=== PATIENT | female | born 1970 | race Two or more races ===

== ENCOUNTER 2024-03-27 09:36 | Outpatient (AMB) | payer MEDICAID, SELFPAY ==
--- NOTE | 2024-03-27 10:14 | PD.ORTHCLVIS ---
Vital signs 03/27/24 10:15 Height 1.6 m Height Method Stated Weight 101.406 kg Weight Measurement Method Standing Scale BMI 39.6 BP 119/74 Blood Pressure Source Automatic Cuff Blood Pressure Location Right Upper Arm Position Sitting Respiration 19 Pulse 68 Pulse Source Monitor Temp 98.0 F Temp Source Temporal Artery Scan Pulse Oximetry (%) 97 Oxygen Delivery Method Room Air Med/Allergies Allergies & Medications Allergies ibuprofen Allergy (Verified 03/27/24 10:15) oyster extract Allergy (Verified 03/27/24 10:15) peanut Allergy (Verified 03/27/24 10:15) shrimp Allergy (Verified 03/27/24 10:15) Medication Reconciliation Unobtainable 03/09/24 [History Confirmed 03/27/24] Subjective Visit Visit for: follow up visit, knee, x-rays and injections Immunization / Flu Flu Vaccine in the Last 12 Months: Yes Flu Vaccine Exclusion Criteria: Already Received History of Present Illness Chief complaint: FOLLOW UP KNEE/XRAYS RESULTS/INJECTION Marika is a pleasant 53-year-old female with left greater than right knee pain. This been ongoing for quite a while. A lot of her pain actually starts in her back and buttocks and radiates all the way down to the leg. There is associated numbness and tingling. She also has right knee pain. Pain Pain level (0-10): 7 Pain duration: CONSTANT Pain location: inside (medial) Pain quality: aching Pain timing: increases with activity Associated signs & symptoms: weakness Ambulatory data Ambulatory device: none Treatments Improvement with previous injections: No Improvement with PT: No Improvement with NSAIDS: no Review of Systems Review of Systems: All systems negative unless otherwise noted in HPI. Exam Exam Patient is in no acute distress and is cooperative with the examination today. Breathing is nonlabored. Patient has a normal mood and affect. Bilateral extremities were evaluated and demonstrates sensation intact to light touch. Palpable pedal pulses are present. No significant edema is present. Bilateral hips were examined. The patient has no pain with log roll of the hips. Internal rotation to 30 degrees and external rotation to 30 degrees is painless. Negative FADIR. Right knee was examined today. The right knee is in reasonable alignment. Range of motion from 0-120 degrees. Knee is stable to varus and valgus as well as AP translation with <5mm. Patient has a negative McMurrays. There is no pain with patellofemoral compression and no crepitus noted. The knee is nontender to palpation. Left knee was examined today. The left knee is in [varus] alignment. Range of motion from [0-115] degrees. Knee is stable to varus and valgus as well as AP translation with <5mm. Patient has a [negative] McMurrays. There is [no] pain with patellofemoral compression and [no] crepitus noted. The knee is [tender] to palpation [medially and laterally]. We obtained weightbearing x-rays from this month. 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 There is moderate arthritis and joint space narrowing on the right. On the left knee there is severe arthritis with complete obliteration of the medial joint space particularly on the Sr. There are osteophytes present. The lumbar spine demonstrates severe changes at L5-S1 Assessment and Plan Problem List (1) Degenerative arthritis of knee, bilateral: Status: Acute Plan: Patient is a pleasant 53-year-old female with bilateral knee painAnd bilateral knee arthritis. She has more arthritis on the left knee. She does have radicular symptoms and has severe degenerative changes on the lumbar spine. I think she would likely benefit from an MRI and a spine evaluation in the future. I will do a cortisone injection of her bilateral knees for both diagnostic and therapeutic purposes Recommend knee cortisone injections as patient would like to proceed with conservative treatment at this time. The risks and benefits of the procedure were reviewed with the patient and patient gave verbal consent to continue with the procedure. Procedure: performed by Dr. Wallace Using sterile technique the Bilateral knees were thoroughly prepped with alcohol, and approximately 1 cc of Kenalog 40 mg/mL and 4 cc of 1% lidocaine was injected into each knee without resistance into the medial tibial femoral joint space. The patient tolerated the procedure. Office Procedures GNS Level of Care Nursing/Assessment Patient Status: Established Patient Nursing Assessment/Reassesment: Medication Reconciliation, Update PMH in EMR and Vital Signs Coordination of Care: Complex Care and Chronic Disease 1-5, Education Complex Pt/Fam, Consent,records obtained, informed consent, Lab and Imaging orders, Results/Orders obtained and Staff clarify orders Special Needs: Language special needs Established Patient Charge Established Patient Point Assignment: 110 Established Patient Point Charge: EP Level 3 (80-115) Surgical Proc/IM SQ injection Major Surgical Procedure: Yes (BILATERAL KNEE INJECTION) Medication Given Medication Given Medication Given: Yes Documented Dose Given: 8 Route: Infiitration Medication Given Medication Given Medication Given: Yes Documented Dose Given: 2 Route: Infiitration Office Meds Xylocaine 10 mg/mL (1 %) injection solution Performing Provider: Roderick Wallace MD Performing Location: [facility] Administered by: Roderick Wallace MD on 03/27/24 10:32 Dose Route Admin Location Dispensed Lot Number Expiration Date [facility] [employer] 40 mL Infiltration 40 mL [id number] 01/26/27 64240-113-43 [facility] triamcinolone acetonide 40 mg/mL suspension for injection Performing Provider: Roderick Wallace MD Performing Location: [facility] Administered by: Roderick Wallace MD on 03/27/24 10:32 Dose Route Admin Location Dispensed Lot Number Expiration Date [facility] [employer] 80 mg Infiltration 2 mL [id number] 12/26/25 [id number] [employer] Past Medical History Past Medical History Have you ever been diagnosed with any of the following: Cardiology Problems Hypercholesterolemia: Yes Hypertension: Yes Respiratory Problems Smoking: No Smoking Exposure: No
[2024-03-27 10:15] VITALS: BP 119/74; PULSE 68; RESP 19; TEMP 36.7; O2SAT 97; BMI 39.6
== END 2024-03-27 11:18 | disposition home or self-care (01) ==
PROVIDERS: PCP Physician Assistant; Referring Provider Physician Assistant; Supervising Provider Orthopaedic Surgery Adult Reconstructive Orthopaedic Surgery; Visit Provider Orthopaedic Surgery Adult Reconstructive Orthopaedic Surgery
DX: M17.0 Bilateral primary osteoarthritis of knee (principal); M25.562 Pain in left knee; M25.561 Pain in right knee; M51.369 Other intervertebral disc degeneration, lumbar region without mention of lumbar back pain or lower extremity pain; I10 Essential (primary) hypertension; E78.00 Pure hypercholesterolemia, unspecified
CPT/HCPCS: 20610; 99213; J3301; J3490; G0463

== ENCOUNTER 2024-07-03 13:58 | Outpatient (AMB) | payer MEDICAID, SELFPAY ==
--- NOTE | 2024-07-03 14:02 | ORTHONT_ITS ---
Vital signs 07/03/24 14:07 Height 1.6 m Height Method Stated Weight 92.108 kg Weight Measurement Method Standing Scale BMI 35.9 BP 125/82 Blood Pressure Source Automatic Cuff Blood Pressure Location Right Upper Arm Position Sitting Respiration 18 Pulse 68 Pulse Source Monitor Temp 98.1 F Temp Source Temporal Artery Scan Pulse Oximetry (%) 97 Oxygen Delivery Method Room Air Med/Allergies Allergies & Medications Allergies ibuprofen Allergy (Verified 07/03/24 14:08) oyster extract Allergy (Verified 07/03/24 14:08) peanut Allergy (Verified 07/03/24 14:08) shrimp Allergy (Verified 07/03/24 14:08) Medication Reconciliation Unobtainable 03/09/24 [History Confirmed 07/03/24] Exam Exam Patient is in no acute distress and is cooperative with the examination today. Breathing is nonlabored. Patient has a normal mood and affect. Bilateral extremities were evaluated and demonstrates sensation intact to light touch. Palpable pedal pulses are present. No significant edema is present. Bilateral hips were examined. The patient has no pain with log roll of the hips. Internal rotation to 30 degrees and external rotation to 30 degrees is painless. Negative FADIR. Right knee was examined today. The right knee is in reasonable alignment. Range of motion from 0-120 degrees. Knee is stable to varus and valgus as well as AP translation with <5mm. Patient has a negative McMurrays. There is no pain with patellofemoral compression and no crepitus noted. The knee is nontender to palpation. Left knee was examined today. The left knee is in [varus] alignment. Range of motion from [0-115] degrees. Knee is stable to varus and valgus as well as AP translation with <5mm. Patient has a [negative] McMurrays. There is [no] pain with patellofemoral compression and [no] crepitus noted. The knee is [tender] to palpation [medially and laterally]. We obtained weightbearing x-rays from this month. 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 There is moderate arthritis and joint space narrowing on the right. On the left knee there is severe arthritis with complete obliteration of the medial joint space particularly on the Sr. There are osteophytes present. The lumbar spine demonstrates severe changes at L5-S1 Assessment and Plan Problem List (1) Degenerative arthritis of knee, bilateral: Status: Acute Plan: Patient is a pleasant 53-year-old female with bilateral knee painAnd bilateral knee arthritis. She has more arthritis on the left knee. She does have radicular symptoms and has severe degenerative changes on the lumbar spine. I think she would likely benefit from an MRI and a spine evaluation in the future. I will do a cortisone injection of her bilateral knees for both diagnostic and therapeutic purposes. She did well with the last injections Recommend knee cortisone injections as patient would like to proceed with conservative treatment at this time. The risks and benefits of the procedure were reviewed with the patient and patient gave verbal consent to continue with the procedure. Procedure: performed by Dr. Wallace Using sterile technique the Bilateral knees were thoroughly prepped with alcohol, and approximately 1 cc of Kenalog 40 mg/mL and 4 cc of 1% lidocaine was injected into each knee without resistance into the medial tibial femoral joint space. The patient tolerated the procedure. Office Procedures GNS Level of Care Nursing/Assessment Patient Status: Established Patient Nursing Assessment/Reassesment: Medication Reconciliation, Update PMH in EMR and Vital Signs Coordination of Care: Complex Care and Chronic Disease 1-5, Education Complex Pt/Fam, Consent,records obtained, informed consent, Results/Orders obtained and Staff clarify orders Special Needs: Language special needs Established Patient Charge Established Patient Point Assignment: 95 Established Patient Point Charge: EP Level 3 (80-115) Surgical Proc/IM SQ injection Major Surgical Procedure: Yes (KNEE INJECTION) Medication Given Medication Given Medication Given: Yes Documented Dose Given: 8 Route: Infiitration Medication Given Medication Given Medication Given: Yes Documented Dose Given: 2 Route: Infiitration Office Meds Xylocaine 10 mg/mL (1 %) injection solution Performing Provider: Roderick Wallace MD Performing Location: [facility] Administered by: Roderick Wallace MD on 07/03/24 14:20 Dose Route Admin Location Dispensed Lot Number Expiration Date [facility] [employer] Representative Insurance 40 mL Infiltration 40 mL [id number] [employer] triamcinolone acetonide 40 mg/mL suspension for injection Performing Provider: Roderick Wallace MD Performing Location: [facility] Administered by: Roderick Wallace MD on 07/03/24 14:20 Dose Route Admin Location Dispensed Lot Number Expiration Date [facility] Outside Sales Representative Insurance 80 mg intra-articular 2 mL [id number] [employer] [place] Intake Visit Data Collection New Patient or Established: Established Patient (seen at [facility] within 3 years) Reason for Visit:: F/U KNEE INJECTION Seen by Clinical Staff ONLY (RN/MA): No Verbal consent obtained for Telemed visit?: No Record Filing Clerk Required: Yes PCP or OBGYN visit in last 3 months: Yes Hx Now: No Do You Feel Safe at Home: Yes Authorities Contacted: N/A Questionairres Past Medical History Past Medical History Have you ever been diagnosed with any of the following: Cardiology Problems Hypercholesterolemia: Yes Hypertension: Yes Respiratory Problems Smoking: No Smoking Exposure: No Subjective Visit Visit for: follow up visit, knee and injections Immunization / Flu Flu Vaccine in the Last 12 Months: No Flu Vaccine Exclusion Criteria: No Exclusion Criteria History of Present Illness Chief complaint: left knee pain Marika is a pleasant 53-year-old female with left greater than right knee pain. This been ongoing for quite a while. A lot of her pain actually starts in her back and buttocks and radiates all the way down to the leg. There is associated numbness and tingling. She also has right knee pain. She did well with the last injection and has minimal pain. Pain Pain level (0-10): 8 Pain duration: CONSTANT Pain location: inside (medial), outside (lateral) and anterior Pain quality: dull and aching Pain timing: increases with activity Associated signs & symptoms: other (specify) Ambulatory data Ambulatory device: none Treatments Improvement with previous injections: No Improvement with PT: No Improvement with NSAIDS: no Review of Systems Review of Systems: All systems negative unless otherwise noted in HPI.
[2024-07-03 14:07] VITALS: BP 125/82; PULSE 68; RESP 18; TEMP 36.7; O2SAT 97; BMI 35.9
== END 2024-07-03 15:00 | disposition home or self-care (01) ==
LOC: HODSRG 13:58
PROVIDERS: Supervising Provider Orthopaedic Surgery Adult Reconstructive Orthopaedic Surgery; Visit Provider Orthopaedic Surgery Adult Reconstructive Orthopaedic Surgery
DX: M17.0 Bilateral primary osteoarthritis of knee (principal); M25.562 Pain in left knee; M25.561 Pain in right knee; I10 Essential (primary) hypertension; E78.00 Pure hypercholesterolemia, unspecified
CPT/HCPCS: 20610; 99213; J3301; J3490; G0463

== ENCOUNTER 2024-07-31 09:45 | Outpatient (AMB) | payer MEDICAID, SELFPAY ==
[2024-07-31 10:27] VITALS: BP 125/78; PULSE 70; RESP 19; TEMP 36.4; O2SAT 98; BMI 34.2
--- NOTE | 2024-07-31 10:27 | ORTHONT_ITS ---
Vital signs 07/31/24 10:27 Height 1.6 m Height Method Stated Weight 87.798 kg Weight Measurement Method Standing Scale BMI 34.2 BP 125/78 Blood Pressure Source Automatic Cuff Blood Pressure Location Left Upper Arm Position Sitting Respiration 19 Pulse 70 Pulse Source Monitor Temp 97.6 F Temp Source Temporal Artery Scan Pulse Oximetry (%) 98 Oxygen Delivery Method Room Air Med/Allergies Allergies & Medications Allergies ibuprofen Allergy (Verified 07/31/24 10:27) oyster extract Allergy (Verified 07/31/24 10:27) peanut Allergy (Verified 07/31/24 10:27) shrimp Allergy (Verified 07/31/24 10:27) Medication Reconciliation pregabalin 75 mg capsule (Lyrica) 75 mg PO BID #30 caps 07/31/24 [Rx] Exam Exam Patient is in no acute distress and is cooperative with the examination today. Breathing is nonlabored. Patient has a normal mood and affect. Bilateral extremities were evaluated and demonstrates sensation intact to light touch. Palpable pedal pulses are present. No significant edema is present. Bilateral hips were examined. The patient has no pain with log roll of the hips. Internal rotation to 30 degrees and external rotation to 30 degrees is painless. Negative FADIR. Right knee was examined today. The right knee is in reasonable alignment. Range of motion from 0-120 degrees. Knee is stable to varus and valgus as well as AP translation with <5mm. Patient has a negative McMurrays. There is no pain with patellofemoral compression and no crepitus noted. The knee is nontender to palpation. Left knee was examined today. The left knee is in [varus] alignment. Range of motion from [0-115] degrees. Knee is stable to varus and valgus as well as AP translation with <5mm. Patient has a [negative] McMurrays. There is [no] pain with patellofemoral compression and [no] crepitus noted. The knee is [tender] to palpation [medially and laterally]. We obtained weightbearing x-rays from this month. 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 There is moderate arthritis and joint space narrowing on the right. On the left knee there is severe arthritis with complete obliteration of the medial joint space particularly on the Sr. There are osteophytes present. The lumbar spine demonstrates severe changes at L5-S1, And prominent bone spurs on the left side of her L3 spine Assessment and Plan Problem List (1) Degenerative arthritis of knee, bilateral: Status: Acute Plan: Patient is a pleasant 53-year-old female with bilateral knee painAnd bilateral knee arthritis. She has more arthritis on the left knee. She does have ra dicular symptoms and has severe degenerative changes on the lumbar spine. I think she would likely benefit from an MRI and a spine evaluation in the future. We discussed is a little Early for a left knee injection at this time. We will give her a left knee brace Office Procedures GNS Level of Care Nursing/Assessment Patient Status: Established Patient Nursing Assessment/Reassesment: Medication Reconciliation, Update PMH in EMR and Vital Signs Coordination of Care: Complex Care and Chronic Disease 1-5, Education Complex Pt/Fam, Consent,records obtained, informed consent, Results/Orders obtained and Staff clarify orders Special Needs: Language special needs Established Patient Charge Established Patient Point Assignment: 95 Established Patient Point Charge: EP Level 3 (80-115) MA Intake Visit Data Collection New Patient or Established: Established Patient (seen at [facility] within 3 years) Reason for Visit:: KNEE PAIN/SWELLING/NUMBNESS LEFT KNEE Seen by Clinical Staff ONLY (RN/MA): No Verbal consent obtained for Telemed visit?: No Slurry Worker Required: Yes PCP or OBGYN visit in last 3 months: Yes Hx Now: No Do You Feel Safe at Home: Yes Authorities Contacted: N/A Questionairres Past Medical History Past Medical History Have you ever been diagnosed with any of the following: Cardiology Problems Hypercholesterolemia: Yes Hypertension: Yes Respiratory Problems Smoking: No Smoking Exposure: No Subjective Visit Visit for: follow up visit and knee (LEFT) Immunization / Flu Flu Vaccine in the Last 12 Months: No Flu Vaccine Exclusion Criteria: No Exclusion Criteria History of Present Illness Chief complaint: left knee pain Marika is a pleasant 53-year-old female with left greater than right knee pain. This been ongoing for quite a while. A lot of her pain actually starts in her back and buttocks and radiates all the way down to the leg. There is associated numbness and tingling. She also has right knee pain. She reports she did not get great relief with a left knee injection. I discussed with her that we need to get a back workup and is scheduled for MRI later this month Pain Pain level (0-10): 8 Pain duration: ALL DAY Pain location: inside (medial) and anterior Pain quality: aching, burning and tingling Pain timing: increases with activity and stairs Associated signs & symptoms: other (specify) Ambulatory data Ambulatory device: none Treatments Improvement with previous injections: No Improvement with PT: No Improvement with NSAIDS: no Review of Systems Review of Systems: All systems negative unless otherwise noted in HPI.
== END 2024-07-31 10:51 | disposition home or self-care (01) ==
LOC: HODSRG 09:45
PROVIDERS: Supervising Provider Orthopaedic Surgery Adult Reconstructive Orthopaedic Surgery; Visit Provider Orthopaedic Surgery Adult Reconstructive Orthopaedic Surgery
DX: M17.0 Bilateral primary osteoarthritis of knee (principal)
CPT/HCPCS: 99213; G0463

== ENCOUNTER 2024-10-12 10:38 | Outpatient (AMB) | payer MEDICAID, SELFPAY ==
[2024-10-12 11:02] VITALS: BP 130/75; PULSE 65; RESP 18; TEMP 36.8; O2SAT 97; BMI 32.4
--- NOTE | 2024-10-12 11:02 | ORTHONT_ITS ---
Vital signs 10/12/24 11:02 Height 1.6 m Height Method Stated Weight 83.121 kg Weight Measurement Method Standing Scale BMI 32.4 BP 130/75 Blood Pressure Source Automatic Cuff Blood Pressure Location Right Upper Arm Position Sitting Respiration 18 Pulse 65 Pulse Source Monitor Temp 98.2 F Temp Source Temporal Artery Scan Pulse Oximetry (%) 97 Oxygen Delivery Method Room Air Med/Allergies Allergies & Medications Allergies ibuprofen Allergy (Verified 10/12/24 11:02) oyster extract Allergy (Verified 10/12/24 11:02) peanut Allergy (Verified 10/12/24 11:02) shrimp Allergy (Verified 10/12/24 11:02) Medication Reconciliation pregabalin 75 mg capsule (Lyrica) 75 mg PO BID #30 caps 07/31/24 [Rx Confirmed 10/12/24] Exam Exam Patient is in no acute distress and is cooperative with the examination today. Breathing is nonlabored. Patient has a normal mood and affect. Bilateral extremities were evaluated and demonstrates sensation intact to light touch. Palpable pedal pulses are present. No significant edema is present. Bilateral hips were examined. The patient has no pain with log roll of the hips. Internal rotation to 30 degrees and external rotation to 30 degrees is painless. Negative FADIR. Right knee was examined today. The right knee is in reasonable alignment. Range of motion from 0-120 degrees. Knee is stable to varus and valgus as well as AP translation with <5mm. Patient has a negative McMurrays. There is no pain with patellofemoral compression and no crepitus noted. The knee is nontender to palp ation. Left knee was examined today. The left knee is in [varus] alignment. Range of motion from [0-115] degrees. Knee is stable to varus and valgus as well as AP translation with <5mm. Patient has a [negative] McMurrays. There is [no] pain with patellofemoral compression and [no] crepitus noted. The knee is [tender] to palpation [medially and laterally]. We obtained weightbearing x-rays from this month. 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 There is moderate arthritis and joint space narrowing on the right. On the left knee there is severe arthritis with complete obliteratio n of the medial joint space particularly on the Sr. There are osteophytes present. The lumbar spine demonstrates severe changes at L5-S1, And prominent bone spurs on the left side of her L3 spine Assessment and Plan Problem List (1) Degenerative arthritis of knee, bilateral: Status: Acute Plan: Patient is a pleasant 53-year-old female with bilateral knee pain and bilateral knee arthritis. She has more arthritis on the left knee. She does have radicular symptoms and has severe degenerative changes on the lumbar spine. I think she would likely benefit from an MRI and a spine evaluation in the future. Recommend knee cortisone injections as patient would like to proceed with conservative treatment at this time. The risks and benefits of the procedure were reviewed with the patient and patient gave verbal consent to continue with the procedure. Procedure: performed by Dr. Wallace Using sterile technique the Bilateral knees were thoroughly prepped with alcohol, and approximately 1 cc of Kenalog 40 mg/mL and 4 cc of 1% lidocaine was injected into each knee without resistance into the medial tibial femoral joint space. The patient tolerated the procedure. Office Procedures GNS Level of Care Nursing/Assessment Patient Status: Established Patient Nursing Assessment/Reassesment: Medication Reconciliation, Update PMH in EMR and Vital Signs Coordination of Care: Complex Care and Chronic Disease 1-5, Education Complex Pt/Fam, Consent,records obtained, informed consent, Results/Orders obtained and Staff clarify orders Special Needs: Language special needs Established Patient Charge Established Patient Point Assignment: 95 Established Patient Point Charge: EP Level 3 (80-115) Surgical Proc/IM SQ injection Major Surgical Procedure: Yes (BILATERAL KNEE INJECTION) Medication Given Medication Given Medication Given: Yes Documented Dose Given: 8 Route: Infiitration Medication Given Medication Given Medication Given: Yes Documented Dose Given: 2 Route: Infiitration Office Meds Xylocaine 10 mg/mL (1 %) injection solution Performing Provider: Roderick Wallace MD Performing Location: [facility] Administered by: Roderick Wallace MD on 10/12/24 11:26 Dose Route Admin Location Dispensed Lot Number Expiration Date [facility] [employer] 40 mL Infiltration 40 mL [id number] 01/27/28 10057-704-26 [facility] triamcinolone acetonide 40 mg/mL suspension for injection Performing Provider: Roderick Wallace MD Performing Location: [facility] Administered by: Roderick Wallace MD on 10/12/24 11:26 Dose Route Admin Location Dispensed Lot Number Expiration Date [facility] [employer] 80 mg intra-articular 2 mL [id number] 03/28/26 6701-1295-39 [place] [employer] [place] Intake Visit Data Collection New Patient or Established: Established Patient (seen at [facility] within 3 years) Reason for Visit:: F/U BILATERAL KNEE INJECTIONS Seen by Clinical Staff ONLY (RN/MA): No Verbal consent obtained for Telemed visit?: No Avionics Electrical Engineer Required: Yes PCP or OBGYN visit in last 3 months: Yes Hx Now: No Do You Feel Safe at Home: Yes Authorities Contacted: N/A Questionairres Past Medical History Past Medical History Have you ever been diagnosed with any of the following: Cardiology Problems Hypercholesterolemia: Yes Hypertension: Yes Respiratory Problems Smoking: No Smoking Exposure: No Subjective Visit Visit for: follow up visit, knee and injections Immunization / Flu Flu Vaccine in the Last 12 Months: Yes Flu Vaccine Exclusion Criteria: Already Received History of Present Illness Chief complaint: F/U BILATERAL KNEE INJECTION Marika is a pleasant 53-year-old female with left greater than right knee pain. This been ongoing for quite a while. A lot of her pain actually starts in her back and buttocks and radiates all the way down to the leg. There is associated numbness and tingling. She also has right knee pain. She reports she did not get great relief with a left knee injection. I discussed with her that we need to get a back workup. We did not get a copy of the report. Personal History Red flag PMH: BMI BMI Counceling provided: Yes Pain Pain level (0-10): 10 Pain duration: ALL CONSTANT Pain location: inside (medial), outside (lateral) and posterior Pain quality: sharp, dull and aching Pain timing: night, increases with activity and stairs Associated signs & symptoms: weakness and stiffness Ambulatory data Ambulatory device: none Treatments Number of previous injections: 2 Improvement with previous injections: Yes Improvement with PT: No Improvement with NSAIDS: no Review of Systems Review of Systems: All systems negative unless otherwise noted in HPI.
== END 2024-10-12 11:28 | disposition home or self-care (01) ==
LOC: HODSRG 10:38
PROVIDERS: Supervising Provider Orthopaedic Surgery Adult Reconstructive Orthopaedic Surgery; Visit Provider Orthopaedic Surgery Adult Reconstructive Orthopaedic Surgery
DX: M17.0 Bilateral primary osteoarthritis of knee (principal); M25.562 Pain in left knee; M25.561 Pain in right knee; I10 Essential (primary) hypertension; E78.00 Pure hypercholesterolemia, unspecified; R20.0 Anesthesia of skin; R20.2 Paresthesia of skin
CPT/HCPCS: 20610; 99213; J3301; J3490; G0463

== ENCOUNTER 2025-01-15 07:50 | Outpatient (AMB) | payer MEDICAID, SELFPAY ==
--- NOTE | 2025-01-15 08:10 | PD.ORTHCLVIS ---
Vital signs 01/15/25 08:11 Height 1.6 m Height Method Stated Weight 85.389 kg Weight Measurement Method Standing Scale BMI 33.3 BP 147/84 H Blood Pressure Source Automatic Cuff Blood Pressure Location Left Upper Arm Position Sitting Respiration 18 Pulse 66 Pulse Source Monitor Temp 97.7 F Temp Source Temporal Artery Scan Pulse Oximetry (%) 98 Oxygen Delivery Method Room Air Med/Allergies Allergies & Medications Allergies ibuprofen Allergy (Verified 01/15/25 08:12) oyster extract Allergy (Verified 01/15/25 08:12) peanut Allergy (Verified 01/15/25 08:12) shrimp Allergy (Verified 01/15/25 08:12) Medication Reconciliation pregabalin 75 mg capsule (Lyrica) 75 mg PO BID #30 caps 07/31/24 [Rx Confirmed 01/15/25] Exam Exam Patient is in no acute distress and is cooperative with the examination today. Breathing is nonlabored. Patient has a normal mood and affect. Bilateral extremities were evaluated and demonstrates sensation intact to light touch. Palpable pedal pulses are present. No significant edema is present. Bilateral hips were examined. The patient has no pain with log roll of the hips. Internal rotation to 30 degrees and external rotation to 30 degrees is painless. Negative FADIR. Right knee was examined today. The right knee is in reasonable alignment. Range of motion from 0-120 degrees. Knee is stable to varus and valgus as well as AP translation with <5mm. Patient has a negative McMurrays. There is no pain with patellofemoral compression and no crepitus noted. The knee is nontender to palpation. Left knee was examined today. The left knee is in [varus] alignment. Range of motion from [0-115] degrees. Knee is stable to varus and valgus as well as AP translation with <5mm. Patient has a [negative] McMurrays. There is [no] pain with patellofemoral compression and [no] crepitus noted. The knee is [tender] to palpation [medially and laterally]. We obtained weightbearing x-rays. 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 There is moderate arthritis and joint space narrowing on the right. On the left knee there is severe arthritis with complete obliteration of the medial joint space particularly on the Sr. There are osteophytes present. The lumbar spine demonstrates severe changes at L5-S1, And prominent bone spurs on the left side of her L3 spine Assessment and Plan Problem List (1) Degenerative arthritis of knee, bilateral: Status: Acute Plan: Patient is a pleasant 53-year-old female with bilateral knee pain and bilateral knee arthritis. She has more arthritis on the left knee. She does have radicular symptoms and has severe degenerative changes on the lumbar spine. She has received great relief with cortisone injections in the past and is no longer getting as great relief as she did before. We thus discussed total knee replacement as a reasonable option. She has tried anti-inflammatories as well as injections and home exercise program. I discussed that her some of the pain could be from her lumbar spine particularly numbness and tingling but a lot of the pain is localized to the knee and she did get great relief with the cortisone injections. I thus think to a total knee replacement would be of benefit for her. The nature and purpose of the total knee replacement, alternative method(s) of treatment, the material risks involved, and the possibility of complications were fully explained to the patient. The patient does NOT have any of the following contraindications to TKA: - Active infection of the knee joint, OR - Active systemic bacteremia, OR - Active skin infection or open wound at surgical site, OR - Neuropathic arthritis, OR - Severe, rapidly progressive neurological disease, OR - Severe medical condition that makes risks of surgery outweigh the potential benefit The patient was told the most common risks and complications associated with a total knee replacement include, but are not limited to: blood clots in the leg, fatal pulmonary embolism, dislocation of the prosthesis, intraoperative and postoperative fractures of the femur or tibia, infection, failure of the prosthesis or grafting materials, complications from anesthesia, reactions to blood transfusions, postoperative leg length inequality, instability of the knee replacement, nerve damage or injury, vascular injury, delayed wound healing, infection, other injury or even . In addition, there are risks associated with anesthesia given during this operation. Also, the patient was told that after undergoing a total knee replacement there may still be persistent pain or disability. The patient was informed that the success of this operation in part depends upon the mechanical devices which are going to be implanted and that these devices can fail or malfunction, and may need to be repaired or replaced and there are no guarantees as to the longevity of this device or its parts and that it or its parts could fail prematurely. The patient was also notified that during the course of surgery, there may be a need to use bone graft from donors, and that any bone graft used will be carefully screened for communicable diseases, including AIDS, hepatitis, Kwaku-Creutzfeldt, or other diseases, but despite the screening procedures, there is a small chance that they could contract one of these diseases. Finally, the patient was asked to follow completely and fully with all advice and recommended treatments, and that recovery and ultimate outcome are affected by their compliance with recommended treatment. We discussed the risks, benefits and treatment alternatives, and the patient is interested in proceeding with surgery. We will try to set this up as expeditiously as possible. Office Procedures GNS Level of Care Nursing/Assessment Patient Status: Established Patient Nursing Assessment/Reassesment: Medication Reconciliation, Update PMH in EMR and Vital Signs Coordination of Care: Complex Care and Chronic Disease 1-5, Education Complex Pt/Fam, Consent,records obtained, informed consent, Results/Orders obtained and Staff clarify orders Special Needs: Language special needs Established Patient Charge Established Patient Point Assignment: 95 Established Patient Point Charge: EP Level 3 (80-115) MA Intake Visit Data Collection New Patient or Established: Established Patient (seen at [facility] within 3 years) Reason for Visit:: F/U BILATERAL KNEE INJECTIONS Seen by Clinical Staff ONLY (RN/MA): No Verbal consent obtained for Telemed visit?: No Accountant Bookkeeper Required: Yes PCP or OBGYN visit in last 3 months: Yes Hx Now: No Do You Feel Safe at Home: Yes Authorities Contacted: N/A Questionairres Past Medical History Past Medical History Have you ever been diagnosed with any of the following: Neurological Problems Cerebrovascular Accident (CVA): No Transient Ischemic Attacks (TIA): No Dementia: No Alzheimer's Disease: No Parkinson's Disease: No Brain Tumor: No Meningitis: No Seizures: No Epilepsy: No Multiple Sclerosis: No Cerebral Palsy: No Amyotrophic Lateral Sclerosis (ALS/Patricia Gehrig's): No Guillain-Thorp Syndrome: No Spina Bifida: No Paralysis: No Peripheral Neuropathy: No Granger's Palsy: No Subdural Hematoma: No Migraine: No Head Trauma: No Spinal Cord Injury: No Traumatic Brain Injury: No Cardiology Problems Myocardial Infarction: No Cardiac Arrhythmia: No Atrial Fibrillation: No Angina: No Heart Murmur: No Coronary Artery Disease: No Atherosclerotic Heart Disease: No Peripheral Vascular Disease: No Hypercholesterolemia: Yes Aneurysm: No Congestive Heart Failure: No Congenital Heart Disease: No Valvular Heart Disease: No Rheumatic Fever: No Cardiomyopathy: No Edema: No Pericarditis: No Cellulitis: No Deep Vein Thrombosis: No Hypertension: Yes Hypotension: No Varicose Veins: No Respiratory Problems Chronic Obstructive Pulmonary Disease (COPD): No Asthma: No Bronchitis: No Emphysema: No Pneumonia: No Pulmonary Fibrosis: No Tuberculosis: No Pulmonary Embolism: No Pulmonary Edema: No Sleep Apnea: No CPAP Dependent: No Respiratory Aspiration: No Dyspnea: No Orthopnea: No Hx Cough: No Cough: No Chest Deformities: No Smoking: No Smoking Cessation Counseling: No Smoking Exposure: No Tobacco Use: No Clubbing: No Exposure to Respiratory Irritants: No Intubation: No Stomache/Intestinal Problems Liver Cancer: No Hepatitis: No Cirrhosis: No Pancreatic Cancer: No Pancreatitis: No Celiac Disease: No Gall Bladder Disease: No Esophageal Varices: No Mortensen's Esophagus: No Colitis: No Ulcerative Colitis: No Diverticulitis: No Diverticulosis: No Ulcer: No Colorectal Cancer: No Irritable Bowel: No Crohn's Disease: No Obstructive Bowel: No Hiatal Hernia: No Hemorrhoids: No Gastroesophageal Reflux Disease: No Polyps: No Obesity: No Genital/Urinary Problems Chronic Kidney Disease: No Renal Disease: No Kidney Stones: No Polycystic Kidney Disease: No Neurogenic Bladder: No Inguinal Hernia: No Dialysis: No Reproductive Problems Breast Cancer: No Endometriosis: No Fibroids: No Genital Herpes: No Gonorrhea: No Pelvic Inflammatory Disease: No Polycystic Ovarian Syndrome: No Previous Pregnancies: No Syphilis: No Uterine Prolapse: No Musculoskeletal Problems Muscular Dystrophy: No Myasthenia Gravis: No Marfan's Syndrome: No Bone Cancer: No Arthritis: No Rheumatoid Arthritis: No Osteoporosis: No Degenerative Disk Disease: No Gout: No Scoliosis: No Carpal Tunnel Syndrome: No Fibromyalgia: No Fractures: No Degenerative Joint Disease: No Osteomyelitis: No Poliovirus: No Head,Eye,Nose,Throat Problems Cataracts: No Glaucoma: No Blind: No Retinal Detachment: No Macular Degeneration: No Chronic Ear Infections: No Deafness: No Eye Prosthesis: No Endocrine Problems Diabetes Mellitus Type 1: No Diabetes Mellitus Type 2: No Hypoglycemia: No [place]'s Syndrome: No Tye's Disease: No Hyperthyroidism: No Hypothyroidism: No Thyroid Cancer: No Parathyroid Disease: No Pituitary Disease: No Systemic Lupus Erythematosus: No Syndrome of Inappropriate Antidiuretic Hormone: No Adrenal Disease: No Graves' Disease: No Blood Problems Anemia: No Leukemia: No Hemophilia: No Thalassemia: No Sickle Cell Disease: No Clotting Problems: No Psychologic Problems Schizophrenia: No Recreational Drug Use: No Bipolar Disorder: No Depression: No Anxiety: No Behavior Problems: No Self-Mutilation: No Attention Deficit Disorder: No Attention Deficit Hyperactivity Disorder: No Depression: No Post Traumatic Stress Disorder: No Eating Disorder: No Subjective Visit Visit for: follow up visit, knee and injections Immunization / Flu Flu Vaccine in the Last 12 Months: Yes Flu Vaccine Exclusion Criteria: Already Received History of Present Illness Chief complaint: F/U BILATERAL KNEE INJECTION Marika is a pleasant 53-year-old female with left greater than right knee pain. This has been ongoing for quite a while. There is associated numbness and tingling. She also has right knee pain. She reports she did not get great relief with a left knee injection this time. She received only 1 to 2 weeks of relief this time. She previously has received months of relief. The left knee pain is significantly worse than the right. Personal History Red flag PMH: BMI BMI Counceling provided: Yes Pain Pain level (0-10): 10 Pain duration: ALL CONSTANT Pain location: inside (medial), outside (lateral) and posterior Pain quality: sharp, dull and aching Pain timing: night, increases with activity and stairs Associated signs & symptoms: weakness and stiffness Ambulatory data Ambulatory device: none Treatments Number of previous injections: 2 Improvement with previous injections: Yes Improvement with PT: No Improvement with NSAIDS: no Review of Systems Review of Systems: All systems negative unless otherwise noted in HPI.
[2025-01-15 08:11] VITALS: BP 147/84; PULSE 66; RESP 18; TEMP 36.5; O2SAT 98; BMI 33.3
== END 2025-01-15 08:45 | disposition home or self-care (01) ==
LOC: HODSRG 07:50
PROVIDERS: Supervising Provider Orthopaedic Surgery Adult Reconstructive Orthopaedic Surgery; Visit Provider Orthopaedic Surgery Adult Reconstructive Orthopaedic Surgery
DX: M17.0 Bilateral primary osteoarthritis of knee (principal); M25.562 Pain in left knee; M25.561 Pain in right knee; R20.0 Anesthesia of skin; R20.2 Paresthesia of skin; I10 Essential (primary) hypertension; E78.00 Pure hypercholesterolemia, unspecified
CPT/HCPCS: 99213; G0463

== ENCOUNTER → 2025-02-20 | Outpatient (CLI) | payer MEDICAID, SELFPAY ==
[2025-02-20 11:27] LABS: HCG Qualitative,Urine Negative
--- NOTE | 2025-02-20 12:00 | XR_ITS ---
Examination: CT left lower extremity, without contrast. 2-D sagittal reconstructions. 2-D coronal reconstructions. 3-D reconstructions. Date and time of exam:February 20, 2025, 1224 hours INDICATIONS: Diagnosis primary unilateral left knee osteoarthritis, left knee pain 5 years CTDI: vol (mGy):29.09 DLP: (mGycm):820 Technique: Multiple 1.25 mm axial sections of the left lower extremity without intravenous contrast have been obtained. 2-D sagittal and coronal reconstructions have been obtained. 3-D reconstructions have been obtained. Low dose protocols were performed. One or more of the following dose reduction techniques were used; automated exposure control, adjustment of the mA and/or KV according to patient size, use of iterative reconstruction technique. Findings: Moderate osteopenia Mild to moderate narrowing left hip joint No left hip fracture or dislocation Moderate to advanced narrowing medial joint space left knee Moderate to advanced osteoarthritis patellofemoral joint and lateral joint space No fracture IMPRESSION: Moderate to advanced left knee tricompartment osteoarthritis
== END | disposition home or self-care (01) ==
PROVIDERS: Referring Provider Orthopaedic Surgery Adult Reconstructive Orthopaedic Surgery; Visit Provider Orthopaedic Surgery Adult Reconstructive Orthopaedic Surgery
DX: M17.12 Unilateral primary osteoarthritis, left knee (principal); Z32.00 Encounter for pregnancy test, result unknown
CPT/HCPCS: 73700; 81025

== ENCOUNTER 2025-02-27 13:11 | Outpatient (AMB) | payer MEDICAID, SELFPAY ==
[2025-02-27 13:17] VITALS: BP 150/85; PULSE 67; RESP 19; TEMP 36.5; O2SAT 98; BMI 33.5
--- NOTE | 2025-02-27 13:17 | ORTHONT_ITS ---
Vital signs 02/27/25 13:17 Height 1.6 m Height Method Stated Weight 85.927 kg Weight Measurement Method Standing Scale BMI 33.5 BP 150/85 H Blood Pressure Source Automatic Cuff Blood Pressure Location Right Upper Arm Position Sitting Respiration 19 Pulse 67 Pulse Source Monitor Temp 97.7 F Temp Source Temporal Artery Scan Pulse Oximetry (%) 98 Oxygen Delivery Method Room Air Med/Allergies Allergies & Medications Allergies ibuprofen Allergy (Verified 02/27/25 13:19) oyster extract Allergy (Verified 02/27/25 13:19) peanut Allergy (Verified 02/27/25 13:19) shrimp Allergy (Verified 02/27/25 13:19) Medication Reconciliation pregabalin 75 mg capsule (Lyrica) 75 mg PO BID #30 caps 07/31/24 [Rx Confirmed 02/27/25] chlorthalidone 25 mg tablet 25 mg PO QDAY 02/27/25 [History Confirmed 02/27/25] ergocalciferol (vitamin D2) 1,250 mcg (50,000 unit) capsule 1,250 mcg PO QMONTH 02/27/25 [History Confirmed 02/27/25] paroxetine HCl 10 mg tablet 10 mg PO QDAY 02/27/25 [History Confirmed 02/27/25] tirzepatide (weight loss) 5 mg/0.5 mL subcutaneous pen injector (Zepbound) 5 mg subcut QWEEK 02/27/25 [History Confirmed 02/27/25] Exam Exam Patient is in no acute distress and is cooperative with the examination today. Breathing is nonlabored. Patient has a normal mood and affect. Bilateral extremities were evaluated and demonstrates sensation intact to light touch. Palpable pedal pulses are present. No significant edema is present. Bilateral hips were examined. The patient has no pain with log roll of the hips. Internal rotation to 30 degrees and external rotation to 30 degrees is painless. Negative FADIR. Right knee was examined today. The right knee is in reasonable alignment. Range of motion from 0-120 degrees. Knee is stable to varus and valgus as well as AP translation with <5mm. Patient has a negative McMurrays. There is no pain with patellofemoral compression and no crepitus noted. The knee is nontender to palpation. Left knee was examined today. The left knee is in [varus] alignment. Range of motion from [0-115] degrees. Knee is stable to varus and valgus as well as AP translation with <5mm. Patient has a [negative] McMurrays. There is [no] pain with patellofemoral compression and [no] crepitus noted. The knee is [tender] to palpation [medially and laterally]. We obtained weightbearing x-rays. 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 There is moderate arthritis and joint space narrowing on the right. On the left knee there is severe arthritis with complete obliteration of the medial joint space particularly on the Sr. There are osteophytes present. The lumbar spine demonstrates severe changes at L5-S1, And prominent bone spurs on the left side of her L3 spine Assessment and Plan Problem List (1) Degenerative arthritis of knee, bilateral: Status: Acute Plan: Patient is a pleasant 53-year-old female with bilateral knee pain and bilateral knee arthritis. She has more arthritis on the left knee. She does have radicular symptoms and has severe degenerative changes on the lumbar spine. She has received great relief with cortisone injections in the past and is no longer getting as great relief as she did before. We thus discussed total knee replacement as a reasonable option. She has tried anti-inflammatories as well as injections and home exercise program. I discussed that her some of the pain could be from her lumbar spine particularly numbness and tingling but a lot of the pain is localized to the knee and she did get great relief with the cortisone injections. I thus think to a total knee replacement would be of benefit for her. The nature and purpose of the total knee replacement, alternative method(s) of treatment, the material risks involved, and the possibility of complications were fully explained to the patient. The patient does NOT have any of the following contraindications to TKA: - Active infection of the knee joint, OR - Active systemic bacteremia, OR - Active skin infection or open wound at surgical site, OR - Neuropathic arthritis, OR - Severe, rapidly progressive neurological disease, OR - Severe medical condition that makes risks of surgery outweigh the potential benefit The patient was told the most common risks and complications associated with a total knee replacement include, but are not limited to: blood clots in the leg, fatal pulmonary embolism, dislocation of the prosthesis, intraoperative and postoperative fractures of the femur or tibia, infection, failure of the prosthesis or grafting materials, complications from anesthesia, reactions to blood transfusions, postoperative leg length inequality, instability of the knee replacement, nerve damage or injury, vascular injury, delayed wound healing, infection, other injury or even . In addition, there are risks associated with anesthesia given during this operation. Also, the patient was told that after undergoing a total knee replacement there may still be persistent pain or disability. The patient was informed that the success of this operation in part depends upon the mechanical devices which are going to be implanted and that these devices can fail or malfunction, and may need to be repaired or replaced and there are no guarantees as to the longevity of this device or its parts and that it or its parts could fail prematurely. The patient was also notified that during the course of surgery, there may be a need to use bone graft from donors, and that any bone graft used will be carefully screened for communicable diseases, including AIDS, hepatitis, J akob-Creutzfeldt, or other diseases, but despite the screening procedures, there is a small chance that they could contract one of these diseases. Finally, the patient was asked to follow completely and fully with all advice and recommended treatments, and that recovery and ultimate outcome are affected by their compliance with recommended treatment. We discussed the risks, benefits and treatment alternatives, and the patient is interested in proceeding with surgery. We will try to set this up as expeditiously as possible. Office Procedures GNS Level of Care Nursing/Assessment Patient Status: Established Patient Nursing Assessment/Reassesment: Medication Reconciliation, Update PMH in EMR and Vital Signs Coordination of Care: Complex Care and Chronic Disease 1-5, Education Complex Pt/Fam, Consent,records obtained, informed consent, 1 Ins Authorization, Results/Orders obtained and Staff clarify orders Special Needs: Language special needs Established Patient Charge Established Patient Point Assignment: 110 Established Patient Point Charge: EP Level 3 (80-115) MA Intake Visit Data Collection New Patient or Established: Established Patient (seen at [facility] [place] within 3 years) Reason for Visit:: PRE-OP LT TKA Seen by Clinical Staff ONLY (RN/MA): No Verbal consent obtained for Telemed visit?: No County Ordinary Required: Yes PCP or OBGYN visit in last 3 months: Yes Hx Now: No Do You Feel Safe at Home: Yes Authorities Contacted: N/A Questionairres Past Medical History Past Medical History Have you ever been diagnosed with any of the following: Neurological Problems Cerebrovascular Accident (CVA): No Transient Ischemic Attacks (TIA): No Dementia: No Alzheimer's Disease: No Parkinson's Disease: No Brain Tumor: No Meningitis: No Seizures: No Epilepsy: No Multiple Sclerosis: No Cerebral Palsy: No Amyotrophic Lateral Sclerosis (ALS/Patricia Gehrig's): No Guillain-[place] Syndrome: No Spina Bifida: No Paralysis: No Peripheral Neuropathy: No Granger's Palsy: No Subdural Hematoma: No Migraine: No Head Trauma: No Spinal Cord Injury: No Traumatic Brain Injury: No Cardiology Problems Myocardial Infarction: No Cardiac Arrhythmia: No Atrial Fibrillation: No Angina: No Heart Murmur: No Coronary Artery Disease: No Atherosclerotic Heart Disease: No Peripheral Vascular Disease: No Hypercholesterolemia: Yes Aneurysm: No Congestive Heart Failure: No Congenital Heart Disease: No Valvular Heart Disease: No Rheumatic Fever: No Cardiomyopathy: No Edema: No Pericarditis: No Cellulitis: No Deep Vein Thrombosis: No Hypertension: Yes Hypotension: No Varicose Veins: No Respiratory Problems Chronic Obstructive Pulmonary Disease (COPD): No Asthma: No Bronchitis: No Emphysema: No Pneumonia: No Pulmonary Fibrosis: No Tuberculosis: No Pulmonary Embolism: No Pulmonary Edema: No Sleep Apnea: No CPAP Dependent: No Respiratory Aspiration: No Dyspnea: No Orthopnea: No Hx Cough: No Cough: No Chest Deformities: No Smoking: No Smoking Cessation Counseling: No Smoking Exposure: No Tobacco Use: No Clubbing: No Exposure to Respiratory Irritants: No Intubation: No Stomache/Intestinal Problems Liver Cancer: No Hepatitis: No Cirrhosis: No Pancreatic Cancer: No Pancreatitis: No Celiac Disease: No Gall Bladder Disease: No Esophageal Varices: No Mortensen's Esophagus: No Colitis: No Ulcerative Colitis: No Diverticulitis: No Diverticulosis: No Ulcer: No Colorectal Cancer: No Irritable Bowel: No Crohn's Disease: No Obstructive Bowel: No Hiatal Hernia: No Hemorrhoids: No Gastroesophageal Reflux Disease: No Polyps: No Obesity: No Genital/Urinary Problems Chronic Kidney Disease: No Renal Disease: No Kidney Stones: No Polycystic Kidney Disease: No Neurogenic Bladder: No Inguinal Hernia: No Dialysis: No Reproductive Problems Breast Cancer: No Endometriosis: No Fibroids: No Genital Herpes: No Gonorrhea: No Pelvic Inflammatory Disease: No Polycystic Ovarian Syndrome: No Previous Pregnancies: No Syphilis: No Uterine Prolapse: No Musculoskeletal Problems Muscular Dystrophy: No Myasthenia Gravis: No Marfan's Syndrome: No Bone Cancer: No Arthritis: No Rheumatoid Arthritis: No Osteoporosis: No Degenerative Disk Disease: No Gout: No Scoliosis: No Carpal Tunnel Syndrome: No Fibromyalgia: No Fractures: No Degenerative Joint Disease: No Osteomyelitis: No Poliovirus: No Head,Eye,Nose,Throat Problems Cataracts: No Glaucoma: No Blind: No Retinal Detachment: No Macular Degeneration: No Chronic Ear Infections: No Deafness: No Eye Prosthesis: No Endocrine Problems Diabetes Mellitus Type 1: No Diabetes Mellitus Type 2: No Hypoglycemia: No Tyronza's Syndrome: No Matteson's Disease: No Hyperthyroidism: No Hypothyroidism: No Thyroid Cancer: No Parathyroid Disease: No Pituitary Disease: No Systemic Lupus Erythematosus: No Syndrome of Inappropriate Antidiuretic Hormone: No Adrenal Disease: No Graves' Disease: No Blood Problems Anemia: No Leukemia: No Hemophilia: No Thalassemia: No Sickle Cell Disease: No Clotting Problems: No Psychologic Problems Schizophrenia: No Recreational Drug Use: No Bipolar Disorder: No Depression: No Anxiety: No Behavior Problems: No Self-Mutilation: No Attention Deficit Disorder: No Attention Deficit Hyperactivity Disorder: No Depression: No Post Traumatic Stress Disorder: No Eating Disorder: No Subjective Visit Visit for: follow up visit and knee Immunization / Flu Flu Vaccine in the Last 12 Months: No Flu Vaccine Exclusion Criteria: No Exclusion Criteria History of Present Illness Chief complaint: PRE-OP LT TKA Marika is a pleasant 54-year-old female with left greater than right knee pain. This has been ongoing for quite a while. There is associated numbness and tingling. She also has right knee pain. She reports she did not get great relief with a left knee injection this time. She received only 1 to 2 weeks of relief this time. She previously has received months of relief. The left knee pain is significantly worse than the right. Personal History Red flag PMH: BMI BMI Counceling provided: Yes Pain Pain level (0-10): 6 Pain duration: ALL DAY Pain location: inside (medial), outside (lateral) and posterior Pain quality: sharp, dull and aching Pain timing: night, increases with activity and stairs Associated signs & symptoms: none Ambulatory data Ambulatory device: none Treatments Number of previous injections: 2 Improvement with previous injections: No Improvement with PT: No Improvement with NSAIDS: no Review of Systems Review of Systems: All systems negative unless otherwise noted in HPI.
== END 2025-02-27 13:28 | disposition home or self-care (01) ==
LOC: HODSRG 13:11
PROVIDERS: PCP Physician Assistant; Referring Provider Physician Assistant; Supervising Provider Orthopaedic Surgery Adult Reconstructive Orthopaedic Surgery; Visit Provider Orthopaedic Surgery Adult Reconstructive Orthopaedic Surgery
DX: M17.0 Bilateral primary osteoarthritis of knee (principal); M25.562 Pain in left knee; M25.561 Pain in right knee; R20.0 Anesthesia of skin; R20.2 Paresthesia of skin; I10 Essential (primary) hypertension; E78.00 Pure hypercholesterolemia, unspecified
CPT/HCPCS: 99213; G0463

== ENCOUNTER 2025-03-18 06:55 | Day surgery (SDC) | payer MEDICAID, SELFPAY ==
[2025-03-14 10:00] VITALS: BMI 34.8
[2025-03-14 10:44] LABS: Basophils # (Auto) 0.0 Thou/mm3 (0.0-0.2); Basophils % (Auto) 0 % (0-2.5); Eosinophils # (Auto) 0.1 Thou/mm3 (0.0-0.5); Eosinophils % (Auto) 1 % (0-10); Hematocrit 40.6 % (36.0-46.0); Hemoglobin 13.4 g/dL (12.0-16.0); Immature Granulocytes Auto 0.02 Thou/mm3 (0.00-0.00); Lymphocytes # (Auto) 2.5 Thou/mm3 (1.0-4.8); Lymphocytes % (Auto) 29 % (10-50); Mean Corpuscular HGB Conc 33.0 g/dl (31.0-37.0); Mean Corpuscular Hemoglobin 28.1 pg (25.0-35.0); Mean Corpuscular Volume 85 fL (80-100); Monocytes # (Auto) 0.7 Thou/mm3 (0.0-0.8); Monocytes % (Auto) 8 % (0-12); Neutrophils # (Auto) 5.4 Thou/mm3 (1.8-7.7); Neutrophils % (Auto) 62 % (37-80); Nucleated Red Blood Cell # 0.00 Thou/mm3 (0.00-0.00); Nucleated Red Blood Cell % 0 /100 WBC (0); Platelet Count 279 Thou/mm3 (140-440); RDW Standard Deviation 40.2 fL (36.4-46.3); Red Blood Count 4.77 Miln/mm3 (4.00-5.20); White Blood Count 8.6 Thou/mm3 (3.6-11.0)
[2025-03-14 10:58] LABS: INR 0.9 (0.9-1.3); Partial Thromboplastin Time 27.2 Seconds (22.0-36.0); Prothrombin Time 10.1 Seconds (9.0-12.2)
[2025-03-14 11:01] LABS: HCG,Qualitative Serum Negative
[2025-03-14 11:06] LABS: Alanine Aminotransferase 25 U/L (10-49); Albumin, Serum 4.2 gm/dL (3.5-5.0); Albumin/Globulin Ratio 1.6 (1.2-2.2); Alkaline Phosphatase 130 U/L (46-116); Anion Gap 8 (7-16); Aspartate Amino Transferase 23 U/L (0-34); BUN/Creatinine Ratio 24 Ratio (12-20); Bilirubin,Total 0.5 mg/dL (0.3-1.2); Blood Urea Nitrogen 17 mg/dL (9-23); Calcium 8.9 mg/dL (8.3-10.6); Calcium (Corrected) 8.9 mg/dL (8.5-10.1); Carbon Dioxide 31.1 mMol/L (20.0-31.0); Chloride 104 mMol/L (98-107); Creatinine (Component) 0.7 mg/dL (0.6-1.3); Estimated Creatinine Clearance 95.9 mL/min (>60); Globulin 2.7 gm/dL (2.3-3.5); Glucose 108 mg/dL (74-106); Osmolality,Calculated 287 (275-295); Potassium 3.9 mMol/L (3.4-5.1); Sodium 143 mMol/L (136-145); Total Protein 6.9 gm/dL (5.7-8.2); eGFR > 60 See Note
[2025-03-18] VITALS (21 sets, daily range): BP systolic 133–153; BP diastolic 69–93; PULSE 66–88; RESP 11–25; TEMP 36.1–36.7; O2SAT 95–99; BMI 35.3
--- NOTE | 2025-03-18 07:20 | SUR.PREOP ---
Patient expressed gratitude for prayer before their procedure.
[2025-03-18] MEDS: ACETAMINOPHEN 325 MG TABLET 650 MG PO (07:46)
[2025-03-18] MEDS: MELOXICAM 7.5 MG TABLET PO (07:48)
[2025-03-18] MEDS: PREGABALIN 75 MG CAPSULE PO (07:48)
--- NOTE | 2025-03-18 10:42 | PD.SUROPNT ---
Date of Procedure 03/18/25 Pre Op Diagnosis left knee osteoarthritis Post Op Diagnosis left knee osteoarthritis Procedure left total knee replacement Findings full thickness cartilage loss and osteophytes Procedure Description Indication: The patient has a long history of left knee pain. X-rays show degenerative arthritis involving the knee. Over the past several years the patient has had increasing pain, progressive limitation in function. He has failed conservative measures including activity modification, physical therapy, injections, anti-inflammatories, and assistive devices. After a lengthy discussion of the risks and benefits, the patient presents now for total knee replacement. The nature and purpose of the total knee replacement, alternative method(s) of treatment, the material risks involved, and the possibility of complications were fully explained to the patient. The patient was told the most common risks and complications associated with a total knee replacement include, but are not limited to blood clots in the leg, fatal pulmonary embolism, dislocation of the prosthesis, intraoperative and postoperative fractures of the femur or tibia, infection, failure of the prosthesis or grafting materials, complications from anesthesia, reactions to blood transfusions, postoperative leg length inequality, instability of the knee replacement, nerve damage or injury, vascular injury, delayed wound healing, infections, other injury or even . In addition, there are risks associated with anesthesia given during this operation, temporary or permanent numbness on the skin lateral to the incision can be a complication unique to total knee surgery, and kneeling can be painful after knee replacement surgery. Also, the patient was told that after undergoing a total knee replacement there may still be pain or disability. We discussed with the patient that we will be using a robot-assisted technology. We discussed that there is a possibility of converting to manual instrumentation. The patient was informed that the success of this operation in part depends upon the mechanical devices which are going to be implanted and that these devices can fail or malfunction, and may need to be repaired or replaced and there are no guarantees as to the longevity of this device or its part and that it or its parts could fail prematurely. Finally, the patient was asked to follow completely and fully with all advice and recommended treatments, and that recovery and ultimate outcome are affected by their compliance with recommended treatment. Surgical technique: Patient was marked and consented in the pre-operative area. The patient was brought to the operating room and placed on the operating table in a supine position. Prior to positioning, a timeout procedure was performed between the surgeon, the anesthesiologist, and the nursing staff where the patient and the operative side were identified and confirmed. After adequate general anesthetic was obtained, the left lower extremity was prepped and draped in the usual sterile fashion. A weight based dose of Cefazolin were administered within 1 hour prior to incision. The robot was preregistered and calibrated before the incision. The extremity was exsanguinated with an esmarch badge and tourniquet inflated to 250mmHg. A midline incision was made. A median parapatellar arthrotomy was made. The patella was subluxed laterally. A medial release was performed to expose the medial tibia. His femoral and tibial pins were placed through an intra incisional manner for both cases. Every effort was made to ensure that the distalmost aspect of the pin was hung in the second cortex. The arrays were then tightened several times to ensure that it was fixed for the remainder of the case. Both femoral and tibial checkpoints were then placed. We then went through the registration process of the bone. We then assessed the knee deformity and attempted to correct it. We also used the robot to aid in judging laxity in both extension and flexion. Final based on laxity and alignment we changed the preoperative assessment to obtain proper proper implant positioning and to correct deformity. Attention was then placed to the tibia. We made a tibial cut using the robot ensuring that both the MCL and the patella tendon were protected with retractors. We then went to the femur and made the posterior cut followed by the anterior cut and the anterior chamfer. The bone was then removed and we made a distal femur cut and a posterior chamfer cut. We verified all cuts. A trial reduction was performed with a size 4 femoral component and a size 4 keeled tibial component. The patella tracked centrally, and no lateral retinacular release was necessary. The trial implants were removed. The arrays, pins, and checkpoints were all removed. We performed a verification that all pins were removed. The cut bone surfaces were lavaged. A size 4 left femoral component, a size 4 keeled tibial component were impacted into position. The knee was felt to be well balanced in the sagittal and coronal plane. The final 4x10 mm cruciate-substituting articular insert was impacted into the tibial tray. The knee was brought out to full extension, flexed up to 120 degrees. It was stable to varus and valgus stress and appropriately balanced in flexion and extension. The wounds were copiously irrigated following deflation of tourniquet. The medial retinaculum was reapproximated with #1 vicryl and quill. The subcutaneous tissues were closed with 0 and 2-0 interrupted Vicryl. The skin was closed with 3-0 Monofilament V loc suture. A sterile dressing was applied. The patient was transferred to a bed and brought to recovery in stable condition. The patient tolerated the procedure well. There were no intraoperative complications. Sponge and needle counts were correct times 2. As the attending surgeon, I attest I was present and performed the entire operation. Grafts/Implants Size 4 CR Femur Size 4 Tibia 10mm poly CS Anesthesia spinal Implants Implants comments: preston Pathology / specimen None Pathology comment: none Estimated Blood Loss 150 Condition Stable Disposition same day Surgeon Roderick Wallace MD Surgical Staff Operation Date: 03/18/25 09:45 Case Staff [employer]: Gay Ortega RN First Assistant: Sujey Barney
--- NOTE | 2025-03-18 10:47 | XR_ITS ---
EXAMINATION: Left knee 2 views TECHNIQUE: AP lateral left knee 2 views Date and time: March 18, 2025, 11:20 a.m. INDICATIONS: Left knee replacement today FINDINGS: Total left knee arthroplasty. Satisfactory alignment. No fracture IMPRESSION: Total left knee arthroplasty with satisfactory alignment
--- NOTE | 2025-03-18 11:07 | SUR.PHASEI ---
pt received from OR in recovery bay 7. pt asleep but responds to voice, breathing unlabored on room air. v/s stable. pt dressing to left lower extremity cdi. report received from Scott AVILES and Jasmeet BURGESS.
--- NOTE | 2025-03-18 11:44 | SUR.PHASEII ---
report fron nurse rodriguez. vss. breathing even and unlabored. dressing to right knee cdi.
--- NOTE | 2025-03-18 12:13 | SUR.PHASEII ---
report to nurse rodriguez.
--- NOTE | 2025-03-18 12:39 | SUR.PHASEII ---
pt c/o bladder pain, placed pt on bed garvey. pt unable to urinate. pt states shes feels pressure to pee but can not. bladder scan performed 731 ml seen on bladder scan.
--- NOTE | 2025-03-18 12:45 | SUR.PHASEII ---
Dr. Wallace notified by telephone of pts bladder contents. straight cath ordered.
--- NOTE | 2025-03-18 14:35 | SUR.PHASEII ---
pt able to tolerate oral fluids without difficulty swallowing or nausea/vomiting.
[2025-03-18] MEDS: fentaNYL CIT INJ 50 mCg/ML AMP 2ML IVP (15:02)
--- NOTE | 2025-03-18 17:15 | SUR.PHASEII ---
pt awake and alert, breathing unlabored on room air. v/s stable. pt dressing to left lower extremity cdi. pt cleared by physical therapist Crescencio. pt able to ambulate to pacu bathroom using walker. d/c instructions given with s/o Gianfranco in room using patch setter Lala lerma, all questions answered. pt d/c via wheelchair with all belongings.
== END 2025-03-18 17:15 | disposition home or self-care (01) ==
PROVIDERS: Anesthesiology; Absent Provider Orthopaedic Surgery Adult Reconstructive Orthopaedic Surgery; PCP Physician Assistant; Referring Provider Orthopaedic Surgery Adult Reconstructive Orthopaedic Surgery; Visit Provider Orthopaedic Surgery Adult Reconstructive Orthopaedic Surgery
PROC: (CPT 20985; principal; 2025-03-18 09:45)
DX: M17.12 Unilateral primary osteoarthritis, left knee (principal); M25.762 Osteophyte, left knee
CPT/HCPCS: 20985; 27447; 36415; 73560; 80053; 84703; 85025; 85610; 85730; 97162; A4217; A4649; C1713; C1776; J0166; J0690; J1100; J1200; J1885; J2250; J2704; J2795; J3010; J3490; A4648; A9270

== ENCOUNTER 2025-04-02 10:25 | Outpatient (AMB) | payer MEDICAID, SELFPAY ==
[2025-04-02 11:06] VITALS: BP 122/81; PULSE 86; RESP 19; TEMP 36.7; O2SAT 98; BMI 34.4
--- NOTE | 2025-04-02 11:06 | PD.ORTHCLVIS ---
Vital signs 04/02/25 11:06 Height 1.57 m Height Method Stated Weight 84.907 kg Weight Measurement Method Standing Scale BMI 34.4 BP 122/81 Blood Pressure Source Automatic Cuff Blood Pressure Location Right Upper Arm Position Sitting Respiration 19 Pulse 86 Pulse Source Monitor Temp 98.1 F Temp Source Temporal Artery Scan Pulse Oximetry (%) 98 Oxygen Delivery Method Room Air Med/Allergies Allergies & Medications Allergies ibuprofen Allergy (Verified 04/02/25 11:07) oyster extract Allergy (Verified 04/02/25 11:07) peanut Allergy (Verified 04/02/25 11:07) Medication Reconciliation chlorthalidone 25 mg tablet 25 mg PO QDAY 02/27/25 [History Confirmed 04/02/25] ergocalciferol (vitamin D2) 1,250 mcg (50,000 unit) capsule 1,250 mcg PO QMONTH 02/27/25 [History Confirmed 04/02/25] paroxetine HCl 10 mg tablet 10 mg PO QDAY 02/27/25 [History Confirmed 04/02/25] tirzepatide (weight loss) 5 mg/0.5 mL subcutaneous pen injector (Zepbound) 5 mg subcut QWEEK 02/27/25 [History Confirmed 04/02/25] atorvastatin 40 mg tablet 40 mg PO HS 03/14/25 [History Confirmed 04/02/25] cetirizine 10 mg tablet 10 mg PO DAILY 03/14/25 [History Confirmed 04/02/25] aspirin 81 mg tablet,delayed release 81 mg PO BID #60 tabs 03/18/25 [Rx Confirmed 04/02/25] doxycycline hyclate 100 mg tablet 100 mg PO BID #14 tabs 03/18/25 [Rx Confirmed 04/02/25] gabapentin 300 mg capsule 300 mg PO .qhs #30 caps 03/18/25 [Rx Confirmed 04/02/25] oxycodone 5 mg tablet 5 mg PO Q6H PRN pain #28 tabs 03/18/25 [Rx Confirmed 04/02/25] sennosides 8.6 mg-docusate sodium 50 mg tablet (Senna-S) 1 tab-cap PO QDAY #30 tabs 03/18/25 [Rx Confirmed 04/02/25] acetaminophen 500 mg tablet (Acetaminophen Extra Strength) 1,000 mg (2 x 500 mg) PO Q6H PRN pain #90 tabs 04/02/25 [Rx] Exam Exam Patient is in no acute distress and is cooperative with the examination today. Breathing is nonlabored. Patient has a normal mood and affect. The patient has a gait that is nonantalgic Bilateral extremities were evaluated and demonstrates sensation intact to light touch. Palpable pedal pulses are present. No significant edema is present. Bilateral hips were examined. The patient has no pain with log roll of the hips. Internal rotation to 30 degrees and external rotation to 30 degrees is painless. Negative FADIR. Left knee incision is clean dry and intact. Knee feels stable varus valgus stress as well as AP translation Assessment and Plan Problem List (1) Degenerative arthritis of knee, bilateral: Status: Acute Plan: Patient is a pleasant 53-year-old female with bilateral knee pain and bilateral knee arthritis. she is status post left total knee replacement and is doing well. She will work with outpatient physical therapy. We will see her back in approximately 4 weeks for routine follow-up Office Procedures GNS Level of Care Nursing/Assessment Patient Status: Established Patient Nursing Assessment/Reassesment: Medication Reconciliation, Update PMH in EMR and Vital Signs Coordination of Care: Complex Care and Chronic Disease 1-5, Education Complex Pt/Fam, Consent,records obtained, informed consent, 1 Ins Authorization, Lab and Imaging orders, Results/Orders obtained and Staff clarify orders Special Needs: Language special needs Established Patient Charge Established Patient Point Assignment: 125 Established Patient Point Charge: EP Level 4 (120-155) MA Intake Visit Data Collection New Patient or Established: Established Patient (seen at [facility] within 3 years) Reason for Visit:: 2 WEEK POST OP TKA Seen by Clinical Staff ONLY (RN/MA): No Verbal consent obtained for Telemed visit?: No [employer] Supervisor Required: Yes PCP or OBGYN visit in last 3 months: Yes Hx Now: No Do You Feel Safe at Home: Yes Authorities Contacted: N/A Questionairres Past Medical History Past Medical History Have you ever been diagnosed with any of the following: Neurological Problems Cerebrovascular Accident (CVA): No Transient Ischemic Attacks (TIA): No Dementia: No Alzheimer's Disease: No Parkinson's Disease: No Brain Tumor: No Meningitis: No Seizures: No Epilepsy: No Multiple Sclerosis: No Cerebral Palsy: No Amyotrophic Lateral Sclerosis (ALS/Patricia Gehrig's): No Guillain-[place] Syndrome: No Spina Bifida: No Paralysis: No Peripheral Neuropathy: No Granger's Palsy: No Subdural Hematoma: No Migraine: No Head Trauma: No Spinal Cord Injury: No Traumatic Brain Injury: No Cardiology Problems Myocardial Infarction: No Cardiac Arrhythmia: No Atrial Fibrillation: No Angina: No Heart Murmur: No Coronary Artery Disease: No Atherosclerotic Heart Disease: No Peripheral Vascular Disease: No Hypercholesterolemia: Yes Aneurysm: No Congestive Heart Failure: No Congenital Heart Disease: No Valvular Heart Disease: No Rheumatic Fever: No Cardiomyopathy: No Edema: No Pericarditis: No Cellulitis: No Deep Vein Thrombosis: No Hypertension: Yes Hypotension: No Varicose Veins: No Respiratory Problems Chronic Obstructive Pulmonary Disease (COPD): No Asthma: No Bronchitis: No Emphysema: No Pneumonia: No Pulmonary Fibrosis: No Tuberculosis: No Pulmonary Embolism: No Pulmonary Edema: No Sleep Apnea: No CPAP Dependent: No Respiratory Aspiration: No Dyspnea: No Orthopnea: No Hx Cough: No Cough: No Chest Deformities: No Smoking: No Smoking Cessation Counseling: No Smoking Exposure: No Tobacco Use: No Clubbing: No Exposure to Respiratory Irritants: No Intubation: No Stomache/Intestinal Problems Liver Cancer: No Hepatitis: No Cirrhosis: No Pancreatic Cancer: No Pancreatitis: No Celiac Disease: No Gall Bladder Disease: No Esophageal Varices: No Mortensen's Esophagus: No Colitis: No Ulcerative Colitis: No Diverticulitis: No Diverticulosis: No Ulcer: No Colorectal Cancer: No Irritable Bowel: No Crohn's Disease: No Obstructive Bowel: No Hiatal Hernia: No Hemorrhoids: No Gastroesophageal Reflux Disease: No Obesity: No Genital/Urinary Problems Renal Disease: No Kidney Stones: No Polycystic Kidney Disease: No Neurogenic Bladder: No Inguinal Hernia: No Dialysis: No Reproductive Problems Breast Cancer: No Endometriosis: No Fibroids: No Genital Herpes: No Gonorrhea: No Pelvic Inflammatory Disease: No Polycystic Ovarian Syndrome: No Previous Pregnancies: No Syphilis: No Uterine Prolapse: No Musculoskeletal Problems Muscular Dystrophy: No Myasthenia Gravis: No Marfan's Syndrome: No Bone Cancer: No Arthritis: No Rheumatoid Arthritis: No Osteoporosis: No Degenerative Disk Disease: No Gout: No Scoliosis: No Carpal Tunnel Syndrome: No Fibromyalgia: No Fractures: No Degenerative Joint Disease: No Osteomyelitis: No Poliovirus: No Head,Eye,Nose,Throat Problems Cataracts: No Glaucoma: No Blind: No Retinal Detachment: No Macular Degeneration: No Chronic Ear Infections: No Deafness: No Eye Prosthesis: No Endocrine Problems Diabetes Mellitus Type 1: No Diabetes Mellitus Type 2: No Hypoglycemia: No Syeda's Syndrome: No Juda's Disease: No Hyperthyroidism: No Hypothyroidism: No Thyroid Cancer: No Parathyroid Disease: No Pituitary Disease: No Systemic Lupus Erythematosus: No Syndrome of Inappropriate Antidiuretic Hormone: No Adrenal Disease: No Graves' Disease: No Blood Problems Anemia: No Leukemia: No Hemophilia: No Thalassemia: No Sickle Cell Disease: No Clotting Problems: No Psychologic Problems Schizophrenia: No Recreational Drug Use: No Bipolar Disorder: No Depression: No Anxiety: No Behavior Problems: No Self-Mutilation: No Attention Deficit Disorder: No Attention Deficit Hyperactivity Disorder: No Depression: No Post Traumatic Stress Disorder: No Eating Disorder: No Other Problems Hospitalization: No Shingles: No Blood Transfusions: No Anesthesia Reactions: No Chicken Pox: Yes Measles: Yes Cancer: No Subjective Visit Visit for: post op #1 Immunization / Flu Flu Vaccine in the Last 12 Months: No Flu Vaccine Exclusion Criteria: No Exclusion Criteria History of Present Illness Chief complaint: 2 WEEK POST OP TKA Marika is a pleasant 54-year-old female with left greater than right knee pain. she is status post left total knee replacement and is doing well.. Personal History Occupation: DISABLED Red flag PMH: BMI BMI Counceling provided: No Pain Pain level (0-10): 5 Pain duration: ALL DAY Pain location: inside (medial), outside (lateral) and anterior Pain quality: sharp, dull and aching Pain timing: night, increases with activity and stairs Associated signs & symptoms: none Ambulatory data Ambulatory device: walker Treatments Number of previous injections: 2 Improvement with previous injections: No Improvement with PT: No Improvement with NSAIDS: no Review of Systems Review of Systems: All systems negative unless otherwise noted in HPI.
== END 2025-04-02 11:26 | disposition home or self-care (01) ==
LOC: HODSRG 10:25
PROVIDERS: PCP Physician Assistant; Referring Provider Physician Assistant; Supervising Provider Orthopaedic Surgery Adult Reconstructive Orthopaedic Surgery; Visit Provider Orthopaedic Surgery Adult Reconstructive Orthopaedic Surgery
DX: M17.0 Bilateral primary osteoarthritis of knee (principal); Z96.652 Presence of left artificial knee joint
CPT/HCPCS: 99214; G0463

== ENCOUNTER 2025-04-30 09:32 | Outpatient (AMB) | payer MEDICAID, SELFPAY ==
[2025-04-30 10:03] VITALS: BP 126/78; PULSE 72; RESP 18; TEMP 36.6; O2SAT 98; BMI 35.5
--- NOTE | 2025-04-30 10:03 | ORTHONT_ITS ---
Vital signs 04/30/25 10:03 Height 1.57 m Height Method Stated Weight 87.628 kg Weight Measurement Method Standing Scale BMI 35.5 BP 126/78 Blood Pressure Source Automatic Cuff Blood Pressure Location Left Upper Arm Position Sitting Respiration 18 Pulse 72 Pulse Source Monitor Temp 97.8 F Temp Source Temporal Artery Scan Pulse Oximetry (%) 98 Oxygen Delivery Method Room Air Med/Allergies Allergies & Medications Allergies ibuprofen Allergy (Verified 04/30/25 10:05) oyster extract Allergy (Verified 04/30/25 10:05) peanut Allergy (Verified 04/30/25 10:05) Medication Reconciliation chlorthalidone 25 mg tablet 25 mg PO QDAY 02/27/25 [History Confirmed 04/30/25] ergocalciferol (vitamin D2) 1,250 mcg (50,000 unit) capsule 1,250 mcg PO QMONTH 02/27/25 [History Confirmed 04/30/25] paroxetine HCl 10 mg tablet 10 mg PO QDAY 02/27/25 [History Confirmed 04/30/25] tirzepatide (weight loss) 5 mg/0.5 mL subcutaneous pen injector (Zepbound) 5 mg subcut QWEEK 02/27/25 [History Confirmed 04/30/25] atorvastatin 40 mg tablet 40 mg PO HS 03/14/25 [History Confirmed 04/30/25] cetirizine 10 mg tablet 10 mg PO DAILY 03/14/25 [History Confirmed 04/30/25] aspirin 81 mg tablet,delayed release 81 mg PO BID #60 tabs 03/18/25 [Rx Confirmed 04/30/25] doxycycline hyclate 100 mg tablet 100 mg PO BID #14 tabs 03/18/25 [Rx Confirmed 04/30/25] gabapentin 300 mg capsule 300 mg PO .qhs #30 caps 03/18/25 [Rx Confirmed 04/30/25] oxycodone 5 mg tablet 5 mg PO Q6H PRN pain #28 tabs 03/18/25 [Rx Confirmed 04/30/25] sennosides 8.6 mg-docusate sodium 50 mg tablet (Senna-S) 1 tab-cap PO QDAY #30 tabs 03/18/25 [Rx Confirmed 04/30/25] acetaminophen 500 mg tablet (Acetaminophen Extra Strength) 1,000 mg (2 x 500 mg) PO Q6H PRN pain #90 tabs 04/02/25 [Rx Confirmed 04/30/25] Exam Exam Patient is in no acute distress and is cooperative with the examination today. Breathing is nonlabored. Patient has a normal mood and affect. The patient has a gait that is nonantalgic Bilateral extremities were evaluated and demonstrates sensation intact to light touch. Palpable pedal pulses are present. No significant edema is present. Bilateral hips were examined. The patient has no pain with log roll of the hips. Internal rotation to 30 degrees and external rotation to 30 degrees is painless. Negative FADIR. Left knee incision is clean dry and intact. Knee feels stable varus valgus stress as well as AP translation. Range of motion is 10 to 75 degrees Assessment and Plan Problem List (1) Degenerative arthritis of knee, bilateral: Status: Acute Plan: Patient is a 55-year-old female status post left total knee replacement. It has been 6 weeks and she has yet to start therapy. The prior physical therapy office told her that they cannot get her in for another 6 weeks. I discussed with her that this is probably not a susceptible. We recommend continued home exercises at home. We will see her back in 2 weeks and we will call the therapy office. If she is still stiff in another 2 to 3 weeks we will consider a manipulation under anesthesia. We will order x-rays as well in the meantime Office Procedures GNS Level of Care Nursing/Assessment Patient Status: Established Patient Nursing Assessment/Reassesment: Medication Reconciliation, Update PMH in EMR and Vital Signs Coordination of Care: Complex Care and Chronic Disease 1-5, Education Complex Pt/Fam, Consent,records obtained, informed consent, Results/Orders obtained and Staff clarify orders Special Needs: Language special needs Established Patient Charge Established Patient Point Assignment: 95 Established Patient Point Charge: EP Level 3 (80-115) MA Intake Visit Data Collection New Patient or Established: Established Patient (seen at [facility] within 3 years) Reason for Visit:: 6WK L TKA Seen by Clinical Staff ONLY (RN/MA): No Verbal consent obtained for Telemed visit?: No [employer] Consultant Required: Yes PCP or OBGYN visit in last 3 months: Yes Hx Now: No Do You Feel Safe at Home: Yes Authorities Contacted: N/A Questionairres Past Medical History Past Medical History Have you ever been diagnosed with any of the following: Neurological Problems Cerebrovascular Accident (CVA): No Transient Ischemic Attacks (TIA): No Dementia: No Alzheimer's Disease: No Parkinson's Disease: No Brain Tumor: No Meningitis: No Seizures: No Epilepsy: No Multiple Sclerosis: No Cerebral Palsy: No Amyotrophic Lateral Sclerosis (ALS/Patricia Gehrig's): No Guillain-[place] Syndrome: No Spina Bifida: No Paralysis: No Peripheral Neuropathy: No Granger's Palsy: No Subdural Hematoma: No Migraine: No Head Trauma: No Spinal Cord Injury: No Traumatic Brain Injury: No Cardiology Problems Myocardial Infarction: No Cardiac Arrhythmia: No Atrial Fibrillation: No Angina: No Heart Murmur: No Coronary Artery Disease: No Atherosclerotic Heart Disease: No Peripheral Vascular Disease: No Hypercholesterolemia: Yes Aneurysm: No Congestive Heart Failure: No Congenital Heart Disease: No Valvular Heart Disease: No Rheumatic Fever: No Cardiomyopathy: No Edema: No Pericarditis: No Cellulitis: No Deep Vein Thrombosis: No Hypertension: Yes Hypotension: No Varicose Veins: No Respiratory Problems Chronic Obstructive Pulmonary Disease (COPD): No Asthma: No Bronchitis: No Emphysema: No Pneumonia: No Pulmonary Fibrosis: No Tuberculosis: No Pulmonary Embolism: No Pulmonary Edema: No Sleep Apnea: No CPAP Dependent: No Respiratory Aspiration: No Dyspnea: No Orthopnea: No Hx Cough: No Cough: No Chest Deformities: No Smoking: No Smoking Cessation Counseling: No Smoking Exposure: No Tobacco Use: No Clubbing: No Exposure to Respiratory Irritants: No Intubation: No Stomache/Intestinal Problems Liver Cancer: No Hepatitis: No Cirrhosis: No Pancreatic Cancer: No Pancreatitis: No Celiac Disease: No Gall Bladder Disease: No Esophageal Varices: No Mortensen's Esophagus: No Colitis: No Ulcerative Colitis: No Diverticulitis: No Diverticulosis: No Ulcer: No Colorectal Cancer: No Irritable Bowel: No Crohn's Disease: No Obstructive Bowel: No Hiatal Hernia: No Hemorrhoids: No Gastroesophageal Reflux Disease: No Obesity: No Genital/Urinary Problems Renal Disease: No Kidney Stones: No Polycystic Kidney Disease: No Neurogenic Bladder: No Inguinal Hernia: No Dialysis: No Reproductive Problems Breast Cancer: No Endometriosis: No Fibroids: No Genital Herpes: No Gonorrhea: No Pelvic Inflammatory Disease: No Polycystic Ovarian Syndrome: No Previous Pregnancies: No Syphilis: No Uterine Prolapse: No Musculoskeletal Problems Muscular Dystrophy: No Myasthenia Gravis: No Marfan's Syndrome: No Bone Cancer: No Arthritis: No Rheumatoid Arthritis: No Osteoporosis: No Degenerative Disk Disease: No Gout: No Scoliosis: No Carpal Tunnel Syndrome: No Fibromyalgia: No Fractures: No Degenerative Joint Disease: No Osteomyelitis: No Poliovirus: No Head,Eye,Nose,Throat Problems Cataracts: No Glaucoma: No Blind: No Retinal Detachment: No Macular Degeneration: No Chronic Ear Infections: No Deafness: No Eye Prosthesis: No Endocrine Problems Diabetes Mellitus Type 1: No Diabetes Mellitus Type 2: No Hypoglycemia: No [place]ora's Syndrome: No [place]'s Disease: No Hyperthyroidism: No Hypothyroidism: No Thyroid Cancer: No Parathyroid Disease: No Pituitary Disease: No Systemic Lupus Erythematosus: No Syndrome of Inappropriate Antidiuretic Hormone: No Adrenal Disease: No Graves' Disease: No Blood Problems Anemia: No Leukemia: No Hemophilia: No Thalassemia: No Sickle Cell Disease: No Clotting Problems: No Psychologic Problems Schizophrenia: No Recreational Drug Use: No Bipolar Disorder: No Depression: No Anxiety: No Behavior Problems: No Self-Mutilation: No Attention Deficit Disorder: No Attention Deficit Hyperactivity Disorder: No Depression: No Post Traumatic Stress Disorder: No Eating Disorder: No Other Problems Hospitalization: No Shingles: No Blood Transfusions: No Anesthesia Reactions: No Chicken Pox: Yes Measles: Yes Cancer: No Subjective Visit Visit for: follow up visit, post op #2 and knee (LEFT) Immunization / Flu Flu Vaccine in the Last 12 Months: No Flu Vaccine Exclusion Criteria: No Exclusion Criteria History of Present Illness Chief complaint: 2 WEEK POST OP TKA Marika is a pleasant 54-year-old female with left greater than right knee pain. she is status post left total knee replacement and is doing well. She has been waiting to start therapy. It has been 6 weeks and she has not started outpatient therapy Personal History Occupation: DISABLED Red flag PMH: BMI BMI Counceling provided: No Pain Pain level (0-10): 4 Pain duration: ON AND OFF Pain location: anterior Pain quality: aching and tingling Pain timing: night, increases with activity and stairs Associated signs & symptoms: none Ambulatory data Ambulatory device: walker Treatments Number of previous injections: 2 Improvement with previous injections: No Improvement with PT: No Improvement with NSAIDS: no Review of Systems Review of Systems: All systems negative unless otherwise noted in HPI.
--- NOTE | 2025-04-30 10:19 | XR_ITS ---
EXAMINATION: Bilateral AP knees standing single view Left knee PA lateral axial 3 views TECHNIQUE: Bilateral AP knees standing single view PA flexion standing left knee, standing lateral left knee, axial left knee 3 views total 4 views Date and time: April 30, 2025, 1031 hours INDICATIONS: Left knee replacement March 18, 2025 FINDINGS: Moderate narrowing medial joint space right knee Mild to moderate narrowing lateral joint space right knee No fracture Total left knee arthroplasty. Satisfactory alignment No fracture No loosening of the prosthetic components No patellar dislocation IMPRESSION: Total left knee arthroplasty with satisfactory alignment
== END 2025-04-30 10:24 | disposition home or self-care (01) ==
LOC: HODSRG 09:32
PROVIDERS: PCP Physician Assistant; Referring Provider Physician Assistant; Supervising Provider Orthopaedic Surgery Adult Reconstructive Orthopaedic Surgery; Visit Provider Orthopaedic Surgery Adult Reconstructive Orthopaedic Surgery
DX: Z47.1 Aftercare following joint replacement surgery (principal); Z96.652 Presence of left artificial knee joint; M25.562 Pain in left knee; M25.561 Pain in right knee; I10 Essential (primary) hypertension; M17.11 Unilateral primary osteoarthritis, right knee
CPT/HCPCS: 73564; 99213; G0463

== ENCOUNTER 2025-05-16 13:12 | Outpatient (AMB) | payer MEDICAID, SELFPAY ==
--- NOTE | 2025-05-16 13:52 | ORTHONT_ITS ---
Vital signs 05/16/25 13:53 Height 1.57 m Height Method Stated Weight 72.291 kg Weight Measurement Method Standing Scale BMI 29.3 BP 131/84 H Blood Pressure Source Automatic Cuff Blood Pressure Location Left Upper Arm Position Sitting Respiration 18 Pulse 78 Pulse Source Monitor Temp 98.4 F Temp Source Temporal Artery Scan Pulse Oximetry (%) 97 Oxygen Delivery Method Room Air Med/Allergies Allergies & Medications Allergies ibuprofen Allergy (Verified 05/16/25 13:53) oyster extract Allergy (Verified 05/16/25 13:53) peanut Allergy (Verified 05/16/25 13:53) Medication Reconciliation chlorthalidone 25 mg tablet 25 mg PO QDAY 02/27/25 [History Confirmed 05/16/25] ergocalciferol (vitamin D2) 1,250 mcg (50,000 unit) capsule 1,250 mcg PO QMONTH 02/27/25 [History Confirmed 05/16/25] paroxetine HCl 10 mg tablet 10 mg PO QDAY 02/27/25 [History Confirmed 05/16/25] tirzepatide (weight loss) 5 mg/0.5 mL subcutaneous pen injector (Zepbound) 5 mg subcut QWEEK 02/27/25 [History Confirmed 05/16/25] atorvastatin 40 mg tablet 40 mg PO HS 03/14/25 [History Confirmed 05/16/25] cetirizine 10 mg tablet 10 mg PO DAILY 03/14/25 [History Confirmed 05/16/25] aspirin 81 mg tablet,delayed release 81 mg PO BID #60 tabs 03/18/25 [Rx Confirmed 05/16/25] doxycycline hyclate 100 mg tablet 100 mg PO BID #14 tabs 03/18/25 [Rx Confirmed 05/16/25] gabapentin 300 mg capsule 300 mg PO .qhs #30 caps 03/18/25 [Rx Confirmed 05/16/25] oxycodone 5 mg tablet 5 mg PO Q6H PRN pain #28 tabs 03/18/25 [Rx Confirmed 05/16/25] sennosides 8.6 mg-docusate sodium 50 mg tablet (Senna-S) 1 tab-cap PO QDAY #30 tabs 03/18/25 [Rx Confirmed 05/16/25] acetaminophen 500 mg tablet (Acetaminophen Extra Strength) 1,000 mg (2 x 500 mg) PO Q6H PRN pain #90 tabs 04/02/25 [Rx Confirmed 05/16/25] Exam Exam Patient is in no acute distress and is cooperative with the examination today. Breathing is nonlabored. Patient has a normal mood and affect. The patient has a gait that is nonantalgic Bilateral extremities were evaluated and demonstrates sensation intact to light touch. Palpable pedal pulses are present. No significant edema is present. Bilateral hips were examined. The patient has no pain with log roll of the hips. Internal rotation to 30 degrees and external rotation to 30 degrees is painless. Negative FADIR. Left knee incision is clean dry and intact. Knee feels stable varus valgus stress as well as AP translation. Range of motion is 10 to 75 degrees Assessment and Plan Problem List (1) Degenerative arthritis of knee, bilateral: Status: Acute Plan: Patient is a 55-year-old female status post left total knee replacement. The patient has been noncompliant and has not been going to physical therapy. Her range of motion is still very poor. We thus recommended manipulation under anesthesia. We discussed with her that if she does not go to physical therapy she will continue to be stiff after the surgery. We discussed the risk of the surgery including rupture of extensor mechanism as well as fracture. The patient understands and we will get the patient on the schedule for manipulation under anesthesia as soon as possible for the left knee. Office Procedures GNS Level of Care Nursing/Assessment Patient Status: Established Patient Nursing Assessment/Reassesment: Medication Reconciliation, Update PMH in EMR and Vital Signs Coordination of Care: Complex Care and Chronic Disease 1-5, Education Complex Pt /Fam, Consent,records obtained, informed consent, Results/Orders obtained and Staff clarify orders Special Needs: Language special needs Established Patient Charge Established Patient Point Assignment: 95 Established Patient Point Charge: EP Level 3 (80-115) MA Intake Visit Data Collection New Patient or Established: Established Patient (seen at 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 PCP or OBGYN visit in last 3 months: Yes Hx Now: No Do You Feel Safe at Home: Yes Authorities Contacted: N/A Questionairres Past Medical History Past Medical History Have you ever been diagnosed with any of the following: Neurological Problems Cerebrovascular Accident (CVA): No Transient Ischemic Attacks (TIA): No Dementia: No Alzheimer's Disease: No Parkinson's Disease: No Brain Tumor: No Meningitis: No Seizures: No Epilepsy: No Multiple Sclerosis: No Cerebral Palsy: No Amyotrophic Lateral Sclerosis (ALS/Patricia Gehrig's): No Guillain-Parthenon Syndrome: No Spina Bifida: No Paralysis: No Peripheral Neuropathy: No Granger's Palsy: No Subdural Hematoma: No Migraine: No Head Trauma: No Spinal Cord Injury: No Traumatic Brain Injury: No Cardiology Problems Myocardial Infarction: No Cardiac Arrhythmia: No Atrial Fibrillation: No Angina: No Heart Murmur: No Coronary Artery Disease: No Atherosclerotic Heart Disease: No Peripheral Vascular Disease: No Hypercholesterolemia: Yes Aneurysm: No Congestive Heart Failure: No Congenital Heart Disease: No Valvular Heart Disease: No Rheumatic Fever: No Cardiomyopathy: No Edema: No Pericarditis: No Cellulitis: No Deep Vein Thrombosis: No Hypertension: Yes Hypotension: No Varicose Veins: No Respiratory Problems Chronic Obstructive Pulmonary Disease (COPD): No Asthma: No Bronchitis: No Emphysema: No Pneumonia: No Pulmonary Fibrosis: No Tuberculosis: No Pulmonary Embolism: No Pulmonary Edema: No Sleep Apnea: No CPAP Dependent: No Respiratory Aspiration: No Dyspnea: No Orthopnea: No Hx Cough: No Cough: No Chest Deformities: No Smoking: No Smoking Cessation Counseling: No Smoking Exposure: No Tobacco Use: No Clubbing: No Exposure to Respiratory Irritants: No Intubation: No Stomache/Intestinal Problems Liver Cancer: No Hepatitis: No Cirrhosis: No Pancreatic Cancer: No Pancreatitis: No Celiac Disease: No Gall Bladder Disease: No Esophageal Varices: No Mortensen's Esophagus: No Colitis: No Ulcerative Colitis: No Diverticulitis: No Diverticulosis: No Ulcer: No Colorectal Cancer: No Irritable Bowel: No Crohn's Disease: No Obstructive Bowel: No Hiatal Hernia: No Hemorrhoids: No Gastroesophageal Reflux Disease: No Obesity: No Genital/Urinary Problems Renal Disease: No Kidney Stones: No Polycystic Kidney Disease: No Neurogenic Bladder: No Inguinal Hernia: No Dialysis: No Reproductive Problems Breast Cancer: No Endometriosis: No Fibroids: No Genital Herpes: No Gonorrhea: No Pelvic Inflammatory Disease: No Polycystic Ovarian Syndrome: No Previous Pregnancies: No Syphilis: No Uterine Prolapse: No Musculoskeletal Problems Muscular Dystrophy: No Myasthenia Gravis: No Marfan's Syndrome: No Bone Cancer: No Arthritis: No Rheumatoid Arthritis: No Osteoporosis: No Degenerative Disk Disease: No Gout: No Scoliosis: No Carpal Tunnel Syndrome: No Fibromyalgia: No Fractures: No Degenerative Joint Disease: No Osteomyelitis: No Poliovirus: No Head,Eye,Nose,Throat Problems Cataracts: No Glaucoma: No Blind: No Retinal Detachment: No Macular Degeneration: No Chronic Ear Infections: No Deafness: No Eye Prosthesis: No Endocrine Problems Diabetes Mellitus Type 1: No Diabetes Mellitus Type 2: No Hypoglycemia: No Bates's Syndrome: No Myra's Disease: No Hyperthyroidism: No Hypothyroidism: No Thyroid Cancer: No Parathyroid Disease: No Pituitary Disease: No Systemic Lupus Erythematosus: No Syndrome of Inappropriate Antidiuretic Hormone: No Adrenal Disease: No Graves' Disease: No Blood Problems Anemia: No Leukemia: No Hemophilia: No Thalassemia: No Sickle Cell Disease: No Clotting Problems: No Psychologic Problems Schizophrenia: No Recreational Drug Use: No Bipolar Disorder: No Depression: No Anxiety: No Behavior Problems: No Self-Mutilation: No Attention Deficit Disorder: No Attention Deficit Hyperactivity Disorder: No Depression: No Post Traumatic Stress Disorder: No Eating Disorder: No Other Problems Hospitalization: No Shingles: No Blood Transfusions: No Anesthesia Reactions: No Chicken Pox: Yes Measles: Yes Cancer: No Subjective Visit Visit for: follow up visit and knee (LEFT) Immunization / Flu Flu Vaccine in the Last 12 Months: No Flu Vaccine Exclusion Criteria: No Exclusion Criteria History of Present Illness Chief complaint: TKA FU/STIFFNESS Marika is a pleasant 54-year-old female with left greater than right knee pain. she is status post left total knee replacement and is doing well. She still has not started therapy. 8 weeks status post left total knee replacement. Initially she said that her physical therapy place was too far from her. We got her into a location right next to her house. We were informed by the physical therapy location that she has no-show to multiple appointments. Unfortunately, she is still stiff and will need a manipulation under anesthesia as range of motion is only 5 to 75 degrees at this time Personal History Occupation: DISABLED Red flag PMH: BMI BMI Counceling provided: No Pain Pain level (0-10): 4 Pain duration: ON AND OFF Pain location: anterior Pain quality: aching and tingling Pain timing: night, increases with activity and stairs Associated signs & symptoms: none Ambulatory data Ambulatory device: walker Treatments Number of previous injections: 2 Improvement with previous injections: No Improvement with PT: No Improvement with NSAIDS: no Review of Systems Review of Systems: All systems negative unless otherwise noted in HPI.
[2025-05-16 13:53] VITALS: BP 131/84; PULSE 78; RESP 18; TEMP 36.9; O2SAT 97; BMI 29.3
== END 2025-05-16 14:15 | disposition home or self-care (01) ==
LOC: HODSRG 13:12
PROVIDERS: PCP Physician Assistant; Referring Provider Physician Assistant; Supervising Provider Orthopaedic Surgery Adult Reconstructive Orthopaedic Surgery; Visit Provider Orthopaedic Surgery Adult Reconstructive Orthopaedic Surgery
DX: M17.0 Bilateral primary osteoarthritis of knee (principal); Z91.199 Patient's noncompliance with other medical treatment and regimen due to unspecified reason; Z96.652 Presence of left artificial knee joint
CPT/HCPCS: 99213; G0463

== ENCOUNTER 2025-05-20 05:40 | Day surgery (SDC) | payer MEDICAID, SELFPAY ==
[2025-05-17 09:52] VITALS: BMI 35.8
[2025-05-17 12:03] LABS: Basophils # (Auto) 0.0 Thou/mm3 (0.0-0.2); Basophils % (Auto) 0 % (0-2.5); Eosinophils # (Auto) 0.1 Thou/mm3 (0.0-0.5); Eosinophils % (Auto) 1 % (0-10); Hematocrit 42.4 % (36.0-46.0); Hemoglobin 13.8 g/dL (12.0-16.0); Immature Granulocytes Auto 0.02 Thou/mm3 (0.00-0.00); Lymphocytes # (Auto) 2.1 Thou/mm3 (1.0-4.8); Lymphocytes % (Auto) 30 % (10-50); Mean Corpuscular HGB Conc 32.5 g/dl (31.0-37.0); Mean Corpuscular Hemoglobin 28.5 pg (25.0-35.0); Mean Corpuscular Volume 87 fL (80-100); Monocytes # (Auto) 0.6 Thou/mm3 (0.0-0.8); Monocytes % (Auto) 8 % (0-12); Neutrophils # (Auto) 4.2 Thou/mm3 (1.8-7.7); Neutrophils % (Auto) 60 % (37-80); Nucleated Red Blood Cell # 0.00 Thou/mm3 (0.00-0.00); Nucleated Red Blood Cell % 0 /100 WBC (0); Platelet Count 354 Thou/mm3 (140-440); RDW Standard Deviation 40.3 fL (36.4-46.3); Red Blood Count 4.85 Miln/mm3 (4.00-5.20); White Blood Count 7.0 Thou/mm3 (3.6-11.0)
[2025-05-17 12:07] LABS: Alanine Aminotransferase 22 U/L (10-49); Albumin, Serum 4.8 gm/dL (3.5-5.0); Albumin/Globulin Ratio 1.4 (1.2-2.2); Alkaline Phosphatase 155 U/L (46-116); Anion Gap 8 (7-16); Aspartate Amino Transferase 24 U/L (0-34); BUN/Creatinine Ratio 18 Ratio (12-20); Bilirubin,Total 0.3 mg/dL (0.3-1.2); Blood Urea Nitrogen 14 mg/dL (9-23); Calcium 9.7 mg/dL (8.3-10.6); Calcium (Corrected) 9.7 mg/dL (8.5-10.1); Carbon Dioxide 32.8 mMol/L (20.0-31.0); Chloride 103 mMol/L (98-107); Creatinine (Component) 0.8 mg/dL (0.6-1.3); Estimated Creatinine Clearance 84.2 mL/min (>60); Globulin 3.4 gm/dL (2.3-3.5); Glucose 97 mg/dL (74-106); Osmolality,Calculated 287 (275-295); Potassium 4.0 mMol/L (3.4-5.1); Sodium 144 mMol/L (136-145); Total Protein 8.2 gm/dL (5.7-8.2); eGFR > 60 See Note
[2025-05-17 12:19] LABS: HCG,Qualitative Serum Negative
[2025-05-17 12:23] LABS: INR 1.0 (0.9-1.3); Partial Thromboplastin Time 26.2 Seconds (22.0-36.0); Prothrombin Time 10.3 Seconds (9.0-12.2)
[2025-05-20 06:00] VITALS: BP 145/70; PULSE 72; RESP 18; TEMP 36.2; O2SAT 98; BMI 36.1
[2025-05-20] MEDS: ACETAMINOPHEN 325 MG TABLET 650 MG PO (06:46)
[2025-05-20] MEDS: PREGABALIN 75 MG CAPSULE PO (06:46)
[2025-05-20 07:43] VITALS: BP 131/76; PULSE 62; RESP 12; TEMP 36.2; O2SAT 98
--- NOTE | 2025-05-20 07:43 | SUR.PHASEII ---
Pt. arrived to recovery via gurney, eyes closed, responds to verbal commands, VSS, no c/o pain or nausea at this time. Report received from Dr. Guillen and Ashley BURGESS.
--- NOTE | 2025-05-20 07:43 | PD.SUROPNT ---
Date of Procedure 05/20/25 Pre Op Diagnosis left knee arthrofibrosis Post Op Diagnosis left knee arthrofibrosis Procedure left knee manipulation under anesthesia Findings preop rom 5-45 Procedure Description Indications: Patient is a 55-year-old female with arthrofibrosis of the left knee. Her preoperative range of motion was 5 to 45 degrees. She has been noncompliant and has missed multiple physical therapy sessions. She has not shown up to physical therapy. We thus discussed manipulation under anesthesia as a reasonable option. Discussed the risk of surgery including fracture or rupture of extensor mechanism Procedure detail: A timeout was performed to ensure that the left side was the correct side. This was marked in preop. We took the patient through range of motion. Once and this point anesthesia was performed we found that her range of motion was only 5 to 45 degrees. We applied a gentle flexion force and was able to manipulate her 220 degrees of flexion and 0 degrees of extension. The patient tolerated the procedure well Pathology / specimen None Pathology comment: none Estimated Blood Loss 0 Condition Stable Disposition same day Surgeon Roderick Wallace MD Surgical Staff Operation Date: 05/20/25 07:30 <No data on this case meets the specified criteria>
--- NOTE | 2025-05-20 07:46 | XR_ITS ---
EXAMINATION: Left knee 2 views TECHNIQUE: AP lateral left knee 2 views Date and time: May 20, 2025, 0844 hours INDICATIONS: Postop knee replacement. FINDINGS: Total left knee arthroplasty. Satisfactory alignment No fracture IMPRESSION: Total left knee arthroplasty with satisfactory alignment
[2025-05-20 07:48] VITALS: BP 123/71; PULSE 68; RESP 18; O2SAT 99
[2025-05-20 07:53] VITALS: BP 112/67; PULSE 64; RESP 17; O2SAT 97
[2025-05-20 08:05] VITALS: BP 115/68; PULSE 63; RESP 20; TEMP 36.2; O2SAT 97
[2025-05-20 08:17] VITALS: BP 109/71; PULSE 62; RESP 15; O2SAT 98
--- NOTE | 2025-05-20 08:50 | SUR.PHASEII ---
Pt. meets criteria for discharge, no c/o pain or nausea at this time, pedal pulses palpable and present saray., VSS, discharge instructions provided to pt. and pt.'s spouse with use of court interpreter services, verbalized understanding. IV discontinued without complications, pt. escorted to vehicle via w/c with all of belongings by staff.
== END 2025-05-20 08:50 | disposition home or self-care (01) ==
PROVIDERS: Anesthesiology; PCP Physician Assistant; Referring Provider Orthopaedic Surgery Adult Reconstructive Orthopaedic Surgery; Visit Provider Orthopaedic Surgery Adult Reconstructive Orthopaedic Surgery
PROC: (CPT 27599; principal; 2025-05-20 07:30)
DX: M24.662 Ankylosis, left knee (principal); Z91.199 Patient's noncompliance with other medical treatment and regimen due to unspecified reason
CPT/HCPCS: 27599; 36415; 73560; 80053; 84703; 85025; 85610; 85730; J2704; J3010; A9270